=== PATIENT | female | born 1935 | race Caucasian/White ===

== ENCOUNTER 2022-01-21 11:03 | Emergency (ER) | payer MEDICARE, SELFPAY ==
--- NOTE | ~2022-01-21 | XR_ITS ---
EXAMINATION: XR CHEST CLINICAL INFORMATION: Generalized weakness COMPARISON: None TECHNIQUE: Frontal view of the chest was obtained. FINDINGS: Cardiac silhouette is normal in size. Atherosclerotic disease of the aortic arch. The lungs are well aerated. There is no lobar consolidation. Blunting of the right costophrenic angle is most consistent with a small pleural effusion. There is no pneumothorax. Degenerative changes of the spine. Old posttraumatic changes of the left humeral head. XR/XR chest 1V IMPRESSION: Small right-sided pleural effusion.
--- NOTE | 2022-01-21 11:39 | ED_ITS ---
HPI - General Adult General Chief complaint: Nausea/Vomiting/Diarrhea Stated complaint: LETHARGY, VOMITING Time Seen by Provider: 01/21/22 11:39 Source: patient and EMS Mode of arrival: EMS Limitations: other (Dementia) History of Present Illness HPI narrative: 86-year-old female came in by ambulance for evaluation of feeling generalized weakness with vomiting. Patient came in from [facility] locked dementia unit for evaluation of generalized weakness, patient found at the long term looking pale soaked in the vomitus no sick contact reported, patient declined any diarrhea, no fever, no chills. Patient stated ?I feel lousy ?. Reported by long term patient initially was hypotensive. History of appendectomy many years ago. Related Data Home Medications Medication Instructions Recorded Confirmed divalproex 125 mg tablet,delayed 125 mg PO BID 01/21/22 01/21/22 release (Depakote) levothyroxine 75 mcg tablet 1 tab PO DAILY 01/21/22 01/21/22 lidocaine 5 % topical patch 1 patch topical DAILY 01/21/22 01/21/22 losartan 50 mg tablet 50 mg PO DAILY 01/21/22 01/21/22 melatonin 5 mg tablet 5 mg PO BEDTIME 01/21/22 01/21/22 multivitamin 1 tab PO DAILY 01/21/22 01/21/22 omeprazole 20 mg capsule,delayed 20 mg PO DAILY 01/21/22 01/21/22 release ondansetron 4 mg disintegrating 4 mg PO Q8H PRN Nausea 01/21/22 01/21/22 tablet polyethylene glycol 3350 17 17 g PO DAILY 01/21/22 01/21/22 gram/dose oral powder (Miralax) quetiapine 25 mg tablet 12.5 mg PO BID PRN Psychosis 01/21/22 01/21/22 simvastatin 20 mg tablet 20 mg PO BEDTIME 01/21/22 01/21/22 tamsulosin 0.4 mg capsule 0.4 mg PO BEDTIME 01/21/22 01/21/22 Allergies Allergy/AdvReac Type Severity Reaction Status Date / Time codeine Allergy Unknown Unknown Verified 01/21/22 11:43 Review of Systems Review of Systems: Yes Unobtainable due to mental status (Due to dementia) PMFSH Social History Social History Patient Tobacco Use Status: Never used Tobacco Use of substances other than those prescribed or required for medical reasons: No Advance Directives: No Physical Exam ED Vital Signs: Vital Signs - 24 hr 01/21/22 12:01 01/21/22 12:13 Temperature 97.4 F 97.4 F Pulse Rate 55 52 Respiratory Rate 16 20 Blood Pressure 106/44 L 106/44 L Pulse Oximetry 97 98 Oxygen Delivery Method Room Air Room Air BMI result Body Mass Index 27.4 Vital signs have been reviewed as appeared to be correct. Blood pressure normal. Heart rate normal. Respiration rate normal. Temperature normal. Oxygen saturation normal. Appearance: Alert. No acute distress. Head: Normal external exam. Normocephalic. Atraumatic. No Blackwell signs noted. No raccoon eyes noted Eyes: PERRLA. EOMI. Conjunctiva and sclera normal. Eyelids normal. ENT: TM's Normal. Pharynx normal. Uvula midline. Moist mucous membranes. No trismus noted. No drooling noted. No muffled voice noted. Neck: Normal inspection. Neck supple. FROM. No adenopathy. Thyroid Normal. No meningeal signs. No neck mass noted. CVS: Normal heart rate and rhythm. Heart sound normal. No murmurs noted. Pulses normal throughout. Respiratory: No respiratory distress. Painless inspiration. Breath sounds normal. No wheezes/rales/rhonchi noted. Chest nontender. No accessory muscle usage noted or decreased air movement noted. Abdomen: Soft and nontender. Bowel sounds normal in all 4 quadrants. No distention noted. No organomegaly noted. No visible injury noted. Back: No CVA tenderness. Full range of motion noted. Skin: Skin warm and dry. Normal skin color. Normal skin turgor. No rashes/lesions/lacerations noted. Extremities: No lower extremity edema. Extremities exhibit normal range of motion. Extremities nontender. Neuro: . Cranial nerve exam: II-XII are grossly intact No motor deficit. No sensory deficit. Reflexes normal. Course Course Course Narrative: 86-year-old female from long term came in for evaluation of vomiting and generalized weakness, patient had low blood pressure reading at the long term but normal BP with EMS and while she is in the ED. Patient is in the ED received IV fluids, patient was given p.o. challenge able to keep it down, patient do not feel any pain, patient is asymptomatic and requesting go back to the long term will arrange for transportation. Medical Decision Making Lab Data Lab results reviewed: Yes I reviewed the patient's lab results. Result diagrams: 01/21/22 12:57 01/21/22 12:57 Labs: Lab Results 01/21/22 01/21/22 01/21/22 Range/Units 12:57 12:59 13:01 Sodium 141 (135-145) mmol/L Potassium 4.7 (3.3-5.1) mmol/L Chloride 102 (96-108) mmol/L Carbon Dioxide 27 (22-29) mmol/L Anion Gap 17 (12-20) BUN 36 H (9-16) mg/dL Creatinine 1.17 (0.5-1.4) mg/dL Estim Creat Clear Calc 32.3 Estimated GFR 44 Random Glucose 100 (60-115) mg/dL Lactic Acid (0.5-2.0) mmol/L Calcium 9.4 (8.4-10.2) mg/dL Total Bilirubin 0.4 (0.0-1.0) mg/dL Direct Bilirubin 0.2 (0.0-0.5) mg/dL AST 17 (5-31) U/L ALT 8 (0-31) U/L Alkaline Phosphatase 88 (39-117) U/L Troponin I High Sens 4.0 (<3.5-17.0) ng/L B-Natriuretic Peptide 16 (<100) pg/mL Total Protein 7.2 (6.5-8.0) g/dL Albumin 3.9 (3.5-5.0) g/dL Lipase 40 (8-78) U/L COVID-19 (DAMIR) (Negative) COVID-19 Clin Com 01/21/22 01/21/22 Range/Units 13:01 13:01 Sodium (135-145) mmol/L Potassium (3.3-5.1) mmol/L Chloride (96-108) mmol/L Carbon Dioxide (22-29) mmol/L Anion Gap (12-20) BUN (9-16) mg/dL Creatinine (0.5-1.4) mg/dL Estim Creat Clear Calc Estimated GFR Random Glucose (60-115) mg/dL Lactic Acid 1.1 (0.5-2.0) mmol/L Calcium (8.4-10.2) mg/dL Total Bilirubin (0.0-1.0) mg/dL Direct Bilirubin (0.0-0.5) mg/dL AST (5-31) U/L ALT (0-31) U/L Alkaline Phosphatase (39-117) U/L Troponin I High Sens (<3.5-17.0) ng/L B-Natriuretic Peptide (<100) pg/mL Total Protein (6.5-8.0) g/dL Albumin (3.5-5.0) g/dL Lipase (8-78) U/L COVID-19 (DAMIR) Negative (Negative) COVID-19 Clin Com See Note CBC hemolyzed, patient feels better able to tolerate p.o. intake no need to repeat CBC. Discharge Plan Discharge Clinical Impression: Dehydration, Vomiting Patient Disposition: Home, Self-Care Instructions: Dehydration (ED) Prescriptions: No Action multivitamin Tablet 1 tab PO DAILY losartan 50 mg Tablet 50 mg PO DAILY quetiapine 25 mg Tablet 12.5 mg PO BID PRN (Reason: Psychosis) levothyroxine 75 mcg tablet 1 tab PO DAILY tamsulosin 0.4 mg Capsule 0.4 mg PO BEDTIME simvastatin 20 mg Tablet 20 mg PO BEDTIME lidocaine 5 % Adhesive Patch,Medicated 1 patch TOPICAL DAILY Rx Instructions: leave on most painful area for up to 12 hrs divalproex [Depakote] 125 mg Tablet,Delayed Release (Dr/Ec) 125 mg PO BID omeprazole 20 mg Capsule,Delayed Release(Dr/Ec) 20 mg PO DAILY polyethylene glycol 3350 [Miralax] 17 gram/dose Powder 17 g PO DAILY ondansetron 4 mg Tablet,Disintegrating 4 mg PO Q8H PRN (Reason: Nausea) melatonin 5 mg Tablet 5 mg PO BEDTIME
--- NOTE | 2022-01-21 11:45 | ECG_ITS ---
Test Reason : N+V Blood Pressure : / mmHG Vent. Rate : 054 BPM Atrial Rate : 054 BPM P-R Int : 142 ms QRS Dur : 092 ms QT Int : 458 ms P-R-T Axes : 023 -62 070 degrees QTc Int : 434 ms Sinus bradycardia Left axis deviation Abnormal ECG No previous ECGs available Referred By: Pj Melendez Electronically Signed By:JADYN JACKSON
[2022-01-21 11:56] VITALS: BP 90/60; PULSE 55; O2SAT 99
[2022-01-21 12:01] VITALS: BP 106/44; PULSE 55; RESP 16; TEMP 36.3; O2SAT 97; BMI 27.4
[2022-01-21 12:13] VITALS: BP 106/44; PULSE 52; RESP 20; TEMP 36.3; O2SAT 98
[2022-01-21] MEDS: 0.9 % Sodium Chloride 1,000 ML 999 ML IV (13:05)
--- NOTE | 2022-01-21 13:13 | PHA.MEDREC ---
Pharmacy Consult ? Medication Reconciliation Pharmacy has completed the medication reconciliation.
[2022-01-21 13:28] LABS: Lactic Acid 1.1 mmol/L (0.5-2.0)
[2022-01-21 13:34] LABS: Alanine Aminotransferase 8 U/L (0-31); Albumin Level 3.9 g/dL (3.5-5.0); Alkaline Phosphatase 88 U/L (39-117); Anion Gap 17 (12-20); Aspartate Amino Transferase 17 U/L (5-31); Bilirubin Direct 0.2 mg/dL (0.0-0.5); Bilirubin Total 0.4 mg/dL (0.0-1.0); Blood Urea Nitrogen 36 mg/dL (9-16); Calcium 9.4 mg/dL (8.4-10.2); Carbon Dioxide 27 mmol/L (22-29); Chloride 102 mmol/L (96-108); Creatinine Clr Calc Pharmacy 32.3; Estimated Glomerular Filt Rate 44; Glucose Random 100 mg/dL (60-115); Lipase 40 U/L (8-78); Potassium 4.7 mmol/L (3.3-5.1); Sodium 141 mmol/L (135-145); Total Protein 7.2 g/dL (6.5-8.0)
[2022-01-21 13:37] LABS: B Type Natriuretic Peptide 16 pg/mL (<100)
[2022-01-21 13:38] LABS: COVID-19 Test Negative (Negative)
--- NOTE | 2022-01-21 17:18 | PC.NURSE ---
RN-RN report given to [facility].
== END 2022-01-21 17:19 | disposition home or self-care (01) ==
PROVIDERS: Emergency Provider Emergency Medicine; PCP Emergency Medicine
DX: R11.2 Nausea with vomiting, unspecified (principal); R06.02 Shortness of breath; Z20.822 Contact with and (suspected) exposure to COVID-19; Z79.899 Other long term (current) drug therapy
CPT/HCPCS: 36415; 71045; 80048; 80076; 83605; 83690; 83880; 84484; 87040; 87635; 93005; 96360; 96361; 99284; 99285

== ENCOUNTER 2022-05-15 14:17 | Inpatient (IN) | payer MEDICARE, SELFPAY ==
--- NOTE | ~2022-05-15 | XR_ITS ---
EXAMINATION: PORTABLE CHEST 1 VIEW CLINICAL INFORMATION: chest pain . COMPARISON: 01/21/2022. TECHNIQUE: Portable frontal view of the chest was obtained. FINDINGS: The lungs are well expanded. Chronic appearing reticular markings again noted bilaterally. No focal infiltrate, effusion, edema, or pneumothorax. Previous tiny right effusion seen on the prior study has essentially resolved. Cardiac and mediastinal silhouettes are within normal limits for technique. No acute bony abnormality seen. XR/XR chest 1V IMPRESSION: Chronic appearing changes similar to the 01/21/2022 study.
[2022-05-15 14:31] VITALS: BP 157/74; PULSE 88; O2SAT 96; BMI 21.3
[2022-05-15 14:37] VITALS: BP 109/67; PULSE 66; RESP 15; TEMP 37.3; O2SAT 94
--- NOTE | 2022-05-15 15:02 | ECG_ITS ---
Test Reason : CP Blood Pressure : / mmHG Vent. Rate : 077 BPM Atrial Rate : 077 BPM P-R Int : 172 ms QRS Dur : 098 ms QT Int : 384 ms P-R-T Axes : 053 -70 064 degrees QTc Int : 434 ms Artifact in tracing Normal sinus rhythm Left axis deviation Incomplete right bundle branch block Abnormal ECG When compared with ECG of 21-JAN-2022 12:12, No significant changes seen Referred By: Generic ED Physician Electronically Signed By:LARISSA JONES
[2022-05-15 15:39] VITALS: PULSE 71
--- NOTE | 2022-05-15 15:41 | PC.NURSE ---
PT CURRENTLY DENIES ANY PAIN, NAUSEA, SOB. POOR HISTORIAN, HX DEMENTIA. NSR ON MONITOR. SPEAKING IN CLEAR FULL SENTENCES, RESP EVEN, NONLABOURED, SKIN WPD.
[2022-05-15 15:42] LABS: MANUAL DIFF FLAG NO
[2022-05-15 15:45] LABS: Basophils Absolute Auto 0.1 X10*3/uL (0.0-0.2); Basophils Percent Auto 0.9 % (0-2); Eosinophils Absolute Auto 0.5 X10*3/uL (0.0-0.4); Eosinophils Percent Auto 4.7 % (0-4); Hematocrit 36.7 % (37.0-47.0); Imm Gran Abs Auto 0.09 X10*3/uL (0.00-0.03); Imm Gran Pct Auto 0.8 % (0.0-0.4); Lymphocytes Absolute Auto 1.6 X10*3/uL (1.2-4.9); Lymphocytes Percent Auto 15.3 % (20-40); Mean Corpuscular HGB Conc 32.7 g/dl (31.0-35.0); Mean Corpuscular Hemoglobin 30.5 pg (27.0-33.0); Mean Corpuscular Volume 93.1 fL (80.0-98.0); Mean Platelet Volume 10.6 fL (9.4-12.3); Monocytes Percent Auto 9.4 % (2-11); Neutrophils Absolute Auto 7.4 x10*3/uL (2.0-8.3); Neutrophils Percent Auto 68.9 % (45-73); Platelet Count 209 X10*3/uL (160-400); Red Blood Count 3.94 X10*6/uL (4.20-5.50); Red Cell Distribution Width 14.2 % (11.0-16.0); White Blood Count 10.8 X10*3/uL (4.8-10.8)
[2022-05-15 15:49] LABS: INTERNATIONAL NORM RATIO 1.1 (0.9-1.1); Prothrombin Time 12.5 SEC (10.0-13.1)
[2022-05-15 16:01] LABS: Alanine Aminotransferase 25 U/L (0-31); Albumin Level 3.8 g/dL (3.5-5.0); Alkaline Phosphatase 103 U/L (39-117); Anion Gap 14 (12-20); Aspartate Amino Transferase 35 U/L (5-31); Bilirubin Total 0.2 mg/dL (0.0-1.0); Blood Urea Nitrogen 33 mg/dL (9-16); Carbon Dioxide 23 mmol/L (22-29); Chloride 105 mmol/L (96-108); Creatinine Clr Calc Pharmacy 40.8; Estimated Glomerular Filt Rate 55; Glucose Random 103 mg/dL (60-115); Potassium 4.4 mmol/L (3.3-5.1); Sodium 138 mmol/L (135-145); Total Protein 7.5 g/dL (6.5-8.0)
[2022-05-15 16:10] LABS: Troponin-I High Sensitivity 54.1 ng/L (<3.5-17.0)
[2022-05-15 17:03] VITALS: BP 132/55; PULSE 77; RESP 20; O2SAT 95
--- NOTE | 2022-05-15 18:28 | ED.CHESTPAIN ---
HPI - Chest Pain General Chief Complaint: Chest Pain Stated Complaint: CP RESOLVED Time Seen by Provider: 05/15/22 16:18 Source: patient, EMS and other History of Present Illness HPI narrative: 86-year-old female was brought in by EMS from the long-term care facility, [facility], for patient complaints of approximately 10 minutes of chest pain that she described as 10/10. On my initial evaluation with the patient she denies any current shortness of breath, chest pain, nausea, dizziness or headache. Patient herself is a poor historian. Related Data Home Medications Medication Instructions Recorded Confirmed divalproex 125 mg tablet,delayed 125 mg PO BID 01/21/22 01/21/22 release (Depakote) levothyroxine 75 mcg tablet 1 tab PO DAILY 01/21/22 01/21/22 lidocaine 5 % topical patch 1 patch topical DAILY 01/21/22 01/21/22 losartan 50 mg tablet 50 mg PO DAILY 01/21/22 01/21/22 melatonin 5 mg tablet 5 mg PO BEDTIME 01/21/22 01/21/22 multivitamin 1 tab PO DAILY 01/21/22 01/21/22 omeprazole 20 mg capsule,delayed 20 mg PO DAILY 01/21/22 01/21/22 release ondansetron 4 mg disintegrating 4 mg PO Q8H PRN Nausea 01/21/22 01/21/22 tablet polyethylene glycol 3350 17 17 g PO DAILY 01/21/22 01/21/22 gram/dose oral powder (Miralax) quetiapine 25 mg tablet 12.5 mg PO BID PRN Psychosis 01/21/22 01/21/22 simvastatin 20 mg tablet 20 mg PO BEDTIME 01/21/22 01/21/22 tamsulosin 0.4 mg capsule 0.4 mg PO BEDTIME 01/21/22 01/21/22 Allergies Allergy/AdvReac Type Severity Reaction Status Date / Time codeine Allergy Unknown Unknown Verified 01/21/22 11:43 Review of Systems Review of Systems: Pertinent positives and negatives as stated in HPI PMFSH Past Medical History Source: nursing notes reviewed Social History Social History Patient Tobacco Use Status: Never used Tobacco Use of substances other than those prescribed or required for medical reasons: No Advance Directives: Yes Advance Directives on File: Yes Advance Directives Date on File: 05/15/22 Physical Exam Vital Signs: Vital Signs: Last Vital Signs Temp 99.1 F 05/15/22 14:37 Pulse 88 05/15/22 19:29 Resp 18 05/15/22 19:29 BP 159/77 H 05/15/22 19:29 Pulse Ox 94 05/15/22 19:29 O2 Del Method 05/15/22 19:29 BMI result Body Mass Index 21.3 VITAL SIGNS: Reviewed. GENERAL: Well developed, well nourished, in no acute distress. HEAD: Normocephalic/atraumatic EYES: PERRLA, EOMI EARS: Ext canals without abnormality OROPHARYNX: no oral lesions noted, posterior pharynx clear LUNGS: Normal breath sounds. No adventitious sounds or accessory muscle use. SpO2<95> CARDIOVASCULAR: Regular rate and rhythm without noted murmurs, no JVD or lower extremity edema. ABDOMEN: Soft, non-tender, non-distended with bowel sounds. MUSCULOSKELETAL: No tenderness, deformities, or effusions noted on gross inspection. EXTREMITIES: No cyanosis, clubbing or edema. SKIN: Inspection of the skin reveals no rashes NEUROLOGIC: Alert and oriented x 2. Strength and sensation to light touch were grossly intact x 4. Course Course Course Narrative: 86-year-old female who is a poor historian, and denies any current complaints to better characterize sequence of events. On review of initial EKG there were changes noted in V4 and V5 that appear to be mild ST elevation at 1508. Initial troponin was noted to be 54 and serial troponin was 68, case discussed with cardiology. Otherwise, I discussed this case with inpatient hospitalist who accepts admission. Reevaluation(s) Reevaluation #1: I discussed with cardiology who states that there is no ST-elevation and on repeat EKG as a comparison states that there is slight elevation and recommends IV heparin if family wishes to proceed. Nursing staff did discuss with the daughter, Christina who is the healthcare proxy, she requests that ?everything be done?. Time: 18:57 Medical Decision Making Lab Data Result Diagrams: 05/15/22 20:05 05/15/22 15:34 Labs: Lab Results 05/15/22 05/15/22 05/15/22 Range/Units 15:34 15:34 15:34 WBC 10.8 (4.8-10.8) X10*3/uL RBC 3.94 L (4.20-5.50) X10*6/uL Hgb 12.0 (12.0-16.0) g/dl Hct 36.7 L (37.0-47.0) % MCV 93.1 (80.0-98.0) fL MCH 30.5 (27.0-33.0) pg MCHC 32.7 (31.0-35.0) g/dl RDW 14.2 (11.0-16.0) % Plt Count 209 (160-400) X10*3/uL MPV 10.6 (9.4-12.3) fL Immature Gran % (Auto) 0.8 H (0.0-0.4) % Neut % (Auto) 68.9 (45-73) % Lymph % (Auto) 15.3 L (20-40) % [place] % (Auto) 9.4 (2-11) % Eos % (Auto) 4.7 H (0-4) % Baso % (Auto) 0.9 (0-2) % Lymph # (Auto) 1.6 (1.2-4.9) X10*3/uL [place] # (Auto) 1.0 (0.1-1.2) X10*3/uL Eos # (Auto) 0.5 H (0.0-0.4) X10*3/uL Baso # (Auto) 0.1 (0.0-0.2) X10*3/uL Abs Immat Gran (auto) 0.09 H (0.00-0.03) X10*3/uL Absolute Neuts (auto) 7.4 (2.0-8.3) x10*3/uL Absolute Nucleated RBC 0.000 (0.0-0.012) X10*3/uL Nucleated RBC % (auto) 0.0 (0.0-0.2) /100WBC PT 12.5 (10.0-13.1) SEC INR 1.1 (0.9-1.1) APTT 30.7 (26.0-36.4) SEC Sodium 138 (135-145) mmol/L Potassium 4.4 (3.3-5.1) mmol/L Chloride 105 (96-108) mmol/L Carbon Dioxide 23 (22-29) mmol/L Anion Gap 14 (12-20) BUN 33 H (9-16) mg/dL Creatinine 0.96 (0.5-1.4) mg/dL Estim Creat Clear Calc 40.8 Estimated GFR 55 Random Glucose 103 (60-115) mg/dL Calcium 9.0 (8.4-10.2) mg/dL Total Bilirubin 0.2 (0.0-1.0) mg/dL AST 35 H (5-31) U/L ALT 25 (0-31) U/L Alkaline Phosphatase 103 (39-117) U/L Troponin I High Sens (<3.5-17.0) ng/L Total Protein 7.5 (6.5-8.0) g/dL Albumin 3.8 (3.5-5.0) g/dL 05/15/22 05/15/22 05/15/22 Range/Units 15:34 17:07 20:05 WBC 13.0 H (4.8-10.8) X10*3/uL RBC 4.25 (4.20-5.50) X10*6/uL Hgb 12.7 (12.0-16.0) g/dl Hct 38.5 (37.0-47.0) % MCV 90.6 (80.0-98.0) fL MCH 29.9 (27.0-33.0) pg MCHC 33.0 (31.0-35.0) g/dl RDW 14.3 (11.0-16.0) % Plt Count 234 (160-400) X10*3/uL MPV 10.4 (9.4-12.3) fL Immature Gran % (Auto) (0.0-0.4) % Neut % (Auto) (45-73) % Lymph % (Auto) (20-40) % [place] % (Auto) (2-11) % Eos % (Auto) (0-4) % Baso % (Auto) (0-2) % Lymph # (Auto) (1.2-4.9) X10*3/uL [place] # (Auto) (0.1-1.2) X10*3/uL Eos # (Auto) (0.0-0.4) X10*3/uL Baso # (Auto) (0.0-0.2) X10*3/uL Abs Immat Gran (auto) (0.00-0.03) X10*3/uL Absolute Neuts (auto) (2.0-8.3) x10*3/uL Absolute Nucleated RBC 0.000 (0.0-0.012) X10*3/uL Nucleated RBC % (auto) 0.0 (0.0-0.2) /100WBC PT (10.0-13.1) SEC INR (0.9-1.1) APTT (26.0-36.4) SEC Sodium (135-145) mmol/L Potassium (3.3-5.1) mmol/L Chloride (96-108) mmol/L Carbon Dioxide (22-29) mmol/L Anion Gap (12-20) BUN (9-16) mg/dL Creatinine (0.5-1.4) mg/dL Estim Creat Clear Calc Estimated GFR Random Glucose (60-115) mg/dL Calcium (8.4-10.2) mg/dL Total Bilirubin (0.0-1.0) mg/dL AST (5-31) U/L ALT (0-31) U/L Alkaline Phosphatase (39-117) U/L Troponin I High Sens 54.1 H* 68.0 H* D (<3.5-17.0) ng/L Total Protein (6.5-8.0) g/dL Albumin (3.5-5.0) g/dL Independent Interpretation I performed an independent interpretation of an: EKG Interpretation: 1508: EKG which demonstrates ST elevation in V4/V5, IA/QRS/QTC are within normal limits(cardiology evaluated and states slight elevation ) 1859: Sinus rhythm with first-degree AV block, HR-93, IA-230, no STEMI, QRS/QTC are within normal limits. Critical Care Time Critical Care Time Critical Care Time: Yes Total Critical Care Time: 60 Attestation: I personally attest to this time spent taking care of the patient. Discharge Plan Discharge Clinical Impression: Chest pain, Angina at rest, Acute electrocardiogram changes, Elevated troponin Patient Disposition: Admitted As Inpatient Prescriptions: No Action multivitamin Tablet 1 tab PO DAILY losartan 50 mg Tablet 50 mg PO DAILY quetiapine 25 mg Tablet 12.5 mg PO BID PRN (Reason: Psychosis) levothyroxine 75 mcg tablet 1 tab PO DAILY tamsulosin 0.4 mg Capsule 0.4 mg PO BEDTIME simvastatin 20 mg Tablet 20 mg PO BEDTIME lidocaine 5 % Adhesive Patch,Medicated 1 patch TOPICAL DAILY Rx Instructions: leave on most painful area for up to 12 hrs divalproex [Depakote] 125 mg Tablet,Delayed Release (Dr/Ec) 125 mg PO BID omeprazole 20 mg Capsule,Delayed Release(Dr/Ec) 20 mg PO DAILY polyethylene glycol 3350 [Miralax] 17 gram/dose Powder 17 g PO DAILY ondansetron 4 mg Tablet,Disintegrating 4 mg PO Q8H PRN (Reason: Nausea) melatonin 5 mg Tablet 5 mg PO BEDTIME
--- NOTE | 2022-05-15 18:59 | ECG_ITS ---
Test Reason : CHEST PAIN Blood Pressure : / mmHG Vent. Rate : 093 BPM Atrial Rate : 093 BPM P-R Int : 230 ms QRS Dur : 086 ms QT Int : 362 ms P-R-T Axes : 072 -70 073 degrees QTc Int : 450 ms Sinus rhythm with 1st degree A-V block Left axis deviation Abnormal ECG When compared with ECG of 15-MAY-2022 15:08, MO interval has increased Incomplete right bundle branch block is no longer Present Referred By: Ubaldo Galarza Electronically Signed By:Blayne Aguillon
[2022-05-15 19:07] VITALS: BP 159/77; PULSE 83; RESP 15; O2SAT 93
[2022-05-15 19:29] VITALS: BP 159/77; PULSE 88; RESP 18; O2SAT 94
--- NOTE | 2022-05-15 19:35 | PC.NURSE ---
This RN spoke to Christina, dtr HCP re: plan for treatment, explained to Christina there are some changes in EKG and elevated troponin x2, patient denies chest pain, VSS. Patient DNR/DNI. Per Christina, treat patient per protocol.
[2022-05-15 19:47] LABS: Partial Thromboplastin Time 30.7 SEC (26.0-36.4)
[2022-05-15 20:12] LABS: Hematocrit 38.5 % (37.0-47.0); Hemoglobin 12.7 g/dl (12.0-16.0); Mean Corpuscular Hemoglobin 29.9 pg (27.0-33.0); Mean Corpuscular Volume 90.6 fL (80.0-98.0); Mean Platelet Volume 10.4 fL (9.4-12.3); Platelet Count 234 X10*3/uL (160-400); Red Blood Count 4.25 X10*6/uL (4.20-5.50); Red Cell Distribution Width 14.3 % (11.0-16.0)
[2022-05-15 20:19] LABS: Prothrombin Time 11.5 SEC (10.0-13.1)
[2022-05-15 20:22] LABS: PTT Heparin Drip 30.6 SEC (53-77.9)
--- NOTE | 2022-05-15 20:32 | P.HPHOSP_ITS ---
History of Present Illness Date of Service: 05/15/22 Chief Complaint: chest pain 86-year-old female with past medical history of dementia , hypothyroidism, seizure disorder, hypertension, sent into the hospital after patient complained of chest pain. Patient is very confused, agitated, crying, very paranoid, rosie ble to get much history from her. On arrival to the ED patient hemodynamically stable Labs are significant for WBC count of 13.0, troponin 54 increased to 68, EKG showed no significant ST T-wave changes suggestive of ACS, this case was discussed with Cardiology by ED physician, and patient was started on heparin drip unable to obtain past medical surgical family, or social history from patient, mostly obtained from EMR Review of Systems Review of Systems: Yes Unobtainable due to mental condition and Unobtainable due to mental status [facility] Medical History (Updated 05/16/22 @ 06:39 by Charles Aleman MD) Dementia Hypertension Hypothyroidism Social History Household Members: Other Household Members Other:: [facility] Housing: Correction Unable to assess alcohol history related to: Refusing to respond Patient Tobacco Use Status: Never used Tobacco Use of substances other than those prescribed or required for medical reasons: Refusing to respond Currently Displaying Signs/Symptoms of Drug Intoxication Withdrawal: No Advance Directives: Yes Advance Directives on File: Yes Advance Directives Date on File: 05/15/22 Do you have thoughts of harming others: None Do you have a plan to hurt others: No Plan Recently lost weight without trying: Unsure Nutrition Risks: No Nutritional Risk Patient : No : No Poor oral hygiene: No service: No Current occupational status: retired [employer] Allergies Allergy/AdvReac Type Severity Reaction Status Date / Time codeine Allergy Unknown Unknown Verified 01/21/22 11:43 Active Medications: Current Medications Acetaminophen (Acetaminophen 325 Mg Tablet) 650 mg PO Q6H PRN PRN Reason: Pain, Mild (Pain Scale 1-3) Docusate Sodium (Docusate Sodium 100 Mg Capsule) 100 mg PO DAILY PRN PRN Reason: Constipation Heparin Sodium (Porcine) (Heparin Sodium,Porcine 5,000 Unit/Ml Vial) 2,400 unit 40 unit/kg (2400 unit) IVPUSH PROTOCOL BOLUS PRN; Protocol PRN Reason: 40 unit/kg - Heparin Protocol Heparin Sodium (Porcine) (Heparin Sodium,Porcine 5,000 Unit/Ml Vial) 4,800 unit 80 unit/kg (4800 unit) IVPUSH PROTOCOL BOLUS PRN; Protocol PRN Reason: 80 unit/kg - Heparin Protocol Heparin Sodium/Sodium Chloride (Heparin Sodium,Porcine/1/2ns) 25,000 unit in 250 mls @ 0 mls/hr IVCONT .Q0M MELINA; Protocol Ondansetron HCl (Ondansetron Hcl 4 Mg/2 Ml Vial) 4 mg IVPUSH Q8H PRN PRN Reason: Nausea and Vomiting Pharmacy Consult (Consult Rx Perform Med Rec) 1 each MISCELLANE ONCE PRN PRN Reason: Consult order Sodium Chloride (0.9 % Sodium Chloride Flush 3 Ml Syringe) 3 ml IVFLUSH QSHIFT [facility] Home Medications Medication Instructions Recorded Confirmed Last Taken Type divalproex 125 mg tablet,delayed 125 mg PO BID 01/21/22 05/15/22 Unknown History release (Depakote) levothyroxine 75 mcg tablet 1 tab PO DAILY 01/21/22 05/15/22 Unknown History lidocaine 5 % topical patch 1 patch topical DAILY 01/21/22 05/15/22 Unknown History melatonin 5 mg tablet 5 mg PO BEDTIME 01/21/22 05/15/22 Unknown History multivitamin 1 tab PO DAILY 01/21/22 05/15/22 Unknown History omeprazole 20 mg capsule,delayed 20 mg PO DAILY 01/21/22 05/15/22 Unknown History release polyethylene glycol 3350 17 17 g PO DAILY 01/21/22 05/15/22 Unknown History gram/dose oral powder (Miralax) quetiapine 25 mg tablet 12.5 mg PO DAILY@1400 01/21/22 05/15/22 Unknown History simvastatin 20 mg tablet 20 mg PO BEDTIME 01/21/22 05/15/22 Unknown History tamsulosin 0.4 mg capsule 0.4 mg PO BEDTIME 01/21/22 05/15/22 Unknown History acetaminophen 325 mg tablet 650 mg PO BID 05/15/22 05/15/22 Unknown History acetaminophen 325 mg tablet 650 mg PO Q6H PRN ELEVATED 05/15/22 05/15/22 Unknown History TEMP/PAIN escitalopram oxalate 5 mg tablet 7.5 mg PO DAILY 05/15/22 05/15/22 Unknown History losartan 25 mg tablet 25 mg PO DAILY 05/15/22 05/15/22 Unknown History Physical Exam Vital Signs and Narrative: Vital Signs: Last Vital Signs Temp 99.1 F 05/15/22 14:37 Pulse 88 05/15/22 19:29 Resp 18 05/15/22 19:29 BP 159/77 H 05/15/22 19:29 Pulse Ox 94 05/15/22 19:29 O2 Del Method 05/15/22 19:29 BMI result Body Mass Index 21.3 Const: Other: patient is very confused, crying, accusing nurses and myself of trying to hurt her General: cooperative and no acute distress Eyes: General: appearance normal, both eyes and all related structures Resp: Effort & Inspection: normal respiratory effort Auscultation: clear to auscultation bilaterally Cardio: Rate: regular rate Rhythm: regular rhythm GI: Palpation (GI): Soft to palpation Auscultation: normal bowel sounds Skin: General skin exam: no rashes or lesions noted Extrem: General: Yes normal to inspection and Yes no pedal edema Results Labs CBC and Chem 7: 05/16/22 04:49 05/16/22 04:49 Labs: Laboratory Results - last 24 hr 05/15/22 05/15/22 05/15/22 15:34 15:34 15:34 MCV 93.1 MCH 30.5 MCHC 32.7 RDW 14.2 Plt Count 209 MPV 10.6 Immature Gran % (Auto) 0.8 H Neut % (Auto) 68.9 Lymph % (Auto) 15.3 L [place] % (Auto) 9.4 Eos % (Auto) 4.7 H Baso % (Auto) 0.9 Lymph # (Auto) 1.6 [place] # (Auto) 1.0 Eos # (Auto) 0.5 H Baso # (Auto) 0.1 Abs Immat Gran (auto) 0.09 H Absolute Neuts (auto) 7.4 Absolute Nucleated RBC 0.000 Nucleated RBC % (auto) 0.0 PT 12.5 INR 1.1 APTT 30.7 aPTT Heparin Protocol Anion Gap 14 Estim Creat Clear Calc 40.8 Estimated GFR 55 Random Glucose 103 Calcium 9.0 Total Bilirubin 0.2 AST 35 H ALT 25 Alkaline Phosphatase 103 Troponin I High Sens Total Protein 7.5 Albumin 3.8 05/15/22 05/15/22 05/15/22 15:34 17:07 20:05 MCV 90.6 MCH 29.9 MCHC 33.0 RDW 14.3 Plt Count 234 MPV 10.4 Immature Gran % (Auto) Neut % (Auto) Lymph % (Auto) [place] % (Auto) Eos % (Auto) Baso % (Auto) Lymph # (Auto) [place] # (Auto) Eos # (Auto) Baso # (Auto) Abs Immat Gran (auto) Absolute Neuts (auto) Absolute Nucleated RBC 0.000 Nucleated RBC % (auto) 0.0 PT INR APTT aPTT Heparin Protocol Anion Gap Estim Creat Clear Calc Estimated GFR Random Glucose Calcium Total Bilirubin AST ALT Alkaline Phosphatase Troponin I High Sens 54.1 H* 68.0 H* D Total Protein Albumin 05/15/22 20:05 MCV MCH MCHC RDW Plt Count MPV Immature Gran % (Auto) Neut % (Auto) Lymph % (Auto) [place] % (Auto) Eos % (Auto) Baso % (Auto) Lymph # (Auto) [place] # (Auto) Eos # (Auto) Baso # (Auto) Abs Immat Gran (auto) Absolute Neuts (auto) Absolute Nucleated RBC Nucleated RBC % (auto) PT 11.5 INR 1.0 APTT aPTT Heparin Protocol 30.6 L Anion Gap Estim Creat Clear Calc Estimated GFR Random Glucose Calcium Total Bilirubin AST ALT Alkaline Phosphatase Troponin I High Sens Total Protein Albumin Imaging Radiologist's Impressions: Impressions Chest X-Ray 05/15/22 19:25 IMPRESSION: Chronic appearing changes similar to the 01/21/2022 study. Assessment and Plan (1) Chest pain: Status: Acute (2) Elevated troponin: Status: Acute Plan 86-year-old female with past medical history of dementia, hypertension, hypothyroidism, presents to the hospital after complaining of chest pain # chest pain - possibly secondary to ACS - able to get any history from patient herself - some troponin elevation - no significant EKGs in just suggestive of ACS - cardiology consulted by ED - patient on heparin - follow heparin protocol # hypertension - stable - will resume antihypertensives # hypothyroidism - continue levothyroxine # dementia - continue Seroquel DVT prophylaxis: Heparin code status: DNR DNI per [facility] Time Spent With Patient Time: Total time managing care of this patient today ____ minutes. Quality Stroke Does the patient have a stroke diagnosis?: No VTE Prior VTE?: No VTE Risk Level:: Medical - moderate - high VTE Device Contraindication: Treatment Not Indicated VTE Drug Contraindication: N/A - Med Ordered
[2022-05-15 20:33] LABS: COVID-19 Test Negative (Negative)
[2022-05-15] MEDS: diphenhydrAMINE HCL 50 MG/ML VIAL 25 MG IVPUSH (20:48)
--- NOTE | 2022-05-15 20:54 | PHA.MEDREC ---
MED REC COMPLETE, NO ISSUES Pharmacy Consult ? Medication Reconciliation Pharmacy has completed the medication reconciliation.
[2022-05-15] MEDS: Heparin Sodium,Porcine 5,000 UNIT/ML VIAL 3600 UNIT IVPUSH (20:55)
[2022-05-15] MEDS: Heparin Sodium,Porcine/1/2NS 25,000 UNIT/250 ML IV.SOLN 7.2 UNIT IVCONT (21:07)
--- NOTE | 2022-05-15 21:11 | MHC.CM.PN ---
Addendum entered by Columba Booker 05/15/22 21:39: Received return telephone call from Christina Fernandez ([phone]), patient's niece and HCP. Per Chrisitna, pt dementia is very advanced. She is total care at [facility]. Incontinent. Bedridden. They use a Hai lift to care for her. Christina believes patient is fully vaccinated and received current booster. Reviewed IMM with HCP. Requested copy at bedside. States is available by telephone, but will be away of Wednesday. Will be in to visit patient on Wednesday. Original Note: CM attempted to meet with patient. Patient has advanced dementia and is orientated to self only. Does not understand why she is at the hospital and wants the police to be called to return her home. Cannot participate in CM interview. Pt resides at [facility]. Per [facility] medical record, pt HCP is Christina Fernandez ([phone]). Message left with HCP to return call. Unable to review IMM or Covid vaccination status at this time. Unknown DME use. Pt being admitted NSTEMI. Pt to return to [facility] at discharge. Return referral placed in Care Port to [facility]. [facility] on file-DNR/DNI, transfer to hospital.
--- NOTE | 2022-05-15 21:19 | PC.NURSE ---
Pt is alert to self. Pt pulled out IV twice. IV site re inserted 22 G R forearm. Pt is resting quietly in bed.
--- NOTE | 2022-05-15 21:56 | PC.NURSE ---
attempted to give nurse to nurse report [place] [facility] staff report nurse will return call.
[2022-05-16 03:19] VITALS: BP 134/72; PULSE 68; RESP 16; TEMP 36.8; O2SAT 95
[2022-05-16 03:45] LABS: PTT Heparin Drip 145.7 SEC (53-77.9)
[2022-05-16 04:58] LABS: Hematocrit 34.8 % (37.0-47.0); Hemoglobin 11.6 g/dl (12.0-16.0); Mean Corpuscular HGB Conc 33.3 g/dl (31.0-35.0); Mean Corpuscular Hemoglobin 30.4 pg (27.0-33.0); Mean Corpuscular Volume 91.3 fL (80.0-98.0); Mean Platelet Volume 10.2 fL (9.4-12.3); Platelet Count 208 X10*3/uL (160-400); Red Blood Count 3.81 X10*6/uL (4.20-5.50); Red Cell Distribution Width 14.3 % (11.0-16.0); White Blood Count 12.3 X10*3/uL (4.8-10.8)
[2022-05-16 05:05] LABS: INTERNATIONAL NORM RATIO 1.1 (0.9-1.1); Prothrombin Time 12.3 SEC (10.0-13.1)
[2022-05-16 05:08] LABS: PTT Heparin Drip 78.7 SEC (53-77.9)
[2022-05-16 05:30] LABS: Anion Gap 14 (12-20); Blood Urea Nitrogen 30 mg/dL (9-16); Calcium 8.9 mg/dL (8.4-10.2); Carbon Dioxide 21 mmol/L (22-29); Chloride 110 mmol/L (96-108); Creatinine Clr Calc Pharmacy 42.6; Estimated Glomerular Filt Rate 58; Glucose Random 90 mg/dL (60-115); Sodium 141 mmol/L (135-145)
[2022-05-16 05:51] VITALS: BMI 22.4
[2022-05-16 08:00] VITALS: BP 151/85; PULSE 67; RESP 12; TEMP 36.7; O2SAT 90
[2022-05-16] MEDS: 0.9 % Sodium Chloride Flush 3 ML SYRINGE IVFLUSH ×3 (08:01→22:13)
[2022-05-16 09:16] LABS: Troponin-I High Sensitivity 43.6 ng/L (<3.5-17.0)
[2022-05-16] MEDS: Acetaminophen 325 MG TABLET 650 MG PO ×2 (10:37→22:13)
[2022-05-16] MEDS: Escitalopram Oxalate 5 MG TABLET 7.5 MG PO (10:37)
[2022-05-16] MEDS: Levothyroxine Sodium 75 MCG TABLET PO (10:37)
[2022-05-16] MEDS: Losartan Potassium 25 MG TABLET PO (10:37)
--- NOTE | 2022-05-16 11:00 | P.CONCA_ITS ---
History of Present Illness History of Present Illness Date of Service: 05/16/22 Chief complaint: NSTEMI Narrative: This is a cardiology consultation regarding chest pain. Patient has history of dementia, seizures and multi comorbidities. She was apparently complaining of chest pain and that led to ER visit. After coming here, she had not really had any clear chest pain symptoms but troponins were borderline high and she had nonspecific changes in the EKG. Subsequently admitted. At this time, she is denying any clear-cut cardiac symptoms. Answering some questions but otherwise seems confused. Review of Systems Review of Systems: Yes all other systems are reviewed and are negative Constitutional: Constitutional: Reports as per HPI Eyes: Eyes: Reports as per HPI ENT: Reports as per HPI Cardiovascular: Cardiovascular: Reports as per HPI, Denies acrocyanosis, Denies cool extremities, Denies chest pain, Denies leg edema, Denies lightheadedness, Denies palpitations and Denies dyspnea Respiratory: Respiratory: Reports as per HPI, Reports no additional respiratory complaints and Denies dyspnea Gastrointestinal: Gastrointestinal: Reports as per HPI and Reports no additional gastrointestinal complaints Genitourinary: Genitourinary: Reports as per HPI Musculoskeletal: Musculoskeletal: Reports no additional musculoskeletal complaints and Reports as per HPI Integumentary/Breasts: Skin/Breast: Reports system reviewed and no additional complaints, except as docu Neurologic: Reports system reviewed and no additional complaints, except as documented and Reports as per HPI Psychiatric: Psychiatric: Reports no additional psychiatric complaints and R eports as per HPI Endocrine: Endocrine: Reports no additional endocrine complaints, Reports as per HPI and Denies palpitations Hematologic/Lymphatic: Hematologic/Lymphatic: Reports no additional hematologic/lymphatic complaints and Reports as per HPI Allergic/Immunologic: Allergic/Immunologic: Reports no additional allergic/immunologic complaints and Reports as per HPI [facility] Past Medical History Medical History (Updated 05/16/22 @ 11:03 by Tito Huynh MD) Dementia Hypertension Hypothyroidism Family History Pertinent family history: Unable to obtain any clear family history. Social History Social History Household Members: Other Household Members Other:: [facility] Housing: Detention Unable to assess alcohol history related to: Refusing to respond Patient Tobacco Use Status: Never used Tobacco Use of substances other than those prescribed or required for medical reasons: Refusing to respond Currently Displaying Signs/Symptoms of Drug Intoxication Withdrawal: No Advance Directives: Yes Advance Directives on File: Yes Advance Directives Date on File: 05/15/22 Do you have thoughts of harming others: None Do you have a plan to hurt others: No Plan Recently lost weight without trying: Unsure Nutrition Risks: No Nutritional Risk Patient : No : No Poor oral hygiene: No service: No Current occupational status: retired Meds Allergies Allergy/AdvReac Type Severity Reaction Status Date / Time codeine Allergy Unknown Unknown Verified 01/21/22 11:43 Active Medications: Current Medications Acetaminophen (Acetaminophen 325 Mg Tablet) 650 mg PO Q6H PRN PRN Reason: Pain, Mild (Pain Scale 1-3) Acetaminophen (Acetaminophen 325 Mg Tablet) 650 mg PO BID [facility] Last Admin: 05/16/22 10:37 Dose: 650 mg Acetaminophen (Acetaminophen 325 Mg Tablet) 650 mg PO Q6H PRN PRN Reason: ELEVATED TEMP/PAIN Atorvastatin Calcium (Atorvastatin Calcium 10 Mg Tablet) 20 mg PO DAILY [facility] Divalproex Sodium (Divalproex Sodium Sprinkles 125 Mg Martin.) 125 mg PO BID [facility] Docusate Sodium (Docusate Sodium 100 Mg Capsule) 100 mg PO DAILY PRN PRN Reason: Constipation Escitalopram Oxalate (Escitalopram Oxalate 5 Mg Tablet) 7.5 mg PO DAILY [facility] Last Admin: 05/16/22 10:37 Dose: 7.5 mg Heparin Sodium (Porcine) (Heparin Sodium,Porcine 5,000 Unit/Ml Vial) 2,400 unit 40 unit/kg (2400 unit) IVPUSH PROTOCOL BOLUS PRN; Protocol PRN Reason: 40 unit/kg - Heparin Protocol Heparin Sodium (Porcine) (Heparin Sodium,Porcine 5,000 Unit/Ml Vial) 4,800 unit 80 unit/kg (4800 unit) IVPUSH PROTOCOL BOLUS PRN; Protocol PRN Reason: 80 unit/kg - Heparin Protocol Heparin Sodium/Sodium Chloride (Heparin Sodium,Porcine/1/2ns) 25,000 unit in 250 mls @ 0 mls/hr IVCONT .Q0M [facility]; Protocol Last Titration: 05/16/22 05:21 Dose: 8 units/kg/hr, 4.8 mls/hr Levothyroxine Sodium (Levothyroxine Sodium 75 Mcg Tablet) 75 mcg PO DAILY@0600 [facility] Last Admin: 05/16/22 10:37 Dose: 75 mcg Lidocaine (Lidocaine 4 % Patch Adh..Patch) 1 patch TRANSDERMA DAILY [facility] Losartan Potassium (Losartan Potassium 25 Mg Tablet) 25 mg PO DAILY [facility]; Protocol Last Admin: 05/16/22 10:37 Dose: 25 mg Melatonin (Melatonin 3 Mg Tablet) 6 mg PO BEDTIME [facility] Multivitamins/Vitamin C (Multivitamin Tablet) 1 tab PO DAILY [facility] Omeprazole (Omeprazole 20 Mg Capsule.Dr) 20 mg PO DAILY@0630 [facility] Ondansetron HCl (Ondansetron Hcl 4 Mg/2 Ml Vial) 4 mg IVPUSH Q8H PRN PRN Reason: Nausea and Vomiting Pharmacy Consult (Consult Rx Perform Med Rec) 1 each MISCELLANE ONCE PRN PRN Reason: Consult order Polyethylene Glycol (Polyethylene Glycol 3350 17 Gm Powd.Pack) 17 gm PO DAILY [facility] Quetiapine Fumarate (Quetiapine Fumarate 25 Mg Tablet) 12.5 mg PO DAILY@1400 [facility] Sodium Chloride (0.9 % Sodium Chloride Flush 3 Ml Syringe) 3 ml IVFLUSH QSHIFT [facility] Last Admin: 05/16/22 08:01 Dose: 3 ml Tamsulosin HCl (Tamsulosin Hcl 0.4 Mg Capsule) 0.4 mg PO BEDTIME [facility] Home Medications Medication Instructions Recorded Confirmed Last Taken Type divalproex 125 mg tablet,delayed 125 mg PO BID 01/21/22 05/15/22 Unknown History release (Depakote) levothyroxine 75 mcg tablet 1 tab PO DAILY 01/21/22 05/15/22 Unknown History lidocaine 5 % topical patch 1 patch topical DAILY 01/21/22 05/15/22 Unknown History melatonin 5 mg tablet 5 mg PO BEDTIME 01/21/22 05/15/22 Unknown History multivitamin 1 tab PO DAILY 01/21/22 05/15/22 Unknown History omeprazole 20 mg capsule,delayed 20 mg PO DAILY 01/21/22 05/15/22 Unknown History release polyethylene glycol 3350 17 17 g PO DAILY 01/21/22 05/15/22 Unknown History gram/dose oral powder (Miralax) quetiapine 25 mg tablet 12.5 mg PO DAILY@1400 01/21/22 05/15/22 Unknown History simvastatin 20 mg tablet 20 mg PO BEDTIME 01/21/22 05/15/22 Unknown History tamsulosin 0.4 mg capsule 0.4 mg PO BEDTIME 01/21/22 05/15/22 Unknown History acetaminophen 325 mg tablet 650 mg PO BID 05/15/22 05/15/22 Unknown History acetaminophen 325 mg tablet 650 mg PO Q6H PRN ELEVATED 05/15/22 05/15/22 Unknown History TEMP/PAIN escitalopram oxalate 5 mg tablet 7.5 mg PO DAILY 05/15/22 05/15/22 Unknown History losartan 25 mg tablet 25 mg PO DAILY 05/15/22 05/15/22 Unknown History Physical Exam Vital Signs: Vital Signs: Last Vital Signs Temp 98.0 F 05/16/22 08:00 Pulse 67 05/16/22 08:00 Resp 12 05/16/22 08:00 BP 151/85 H 05/16/22 08:00 Pulse Ox 90 L 05/16/22 08:00 O2 Del Method 05/16/22 08:00 BMI result Body Mass Index 22.4 Const: General: comfortable and no acute distress Orientation/consciousness: No patient oriented x3 HEENT: Other: Unremarkable Head: Yes normal to inspection Neck: Neck: Yes normal visual inspection Chest: Chest palpation & inspection: normal inspection of the chest Resp: Auscultation: clear to auscultation bilaterally Cardio: Palpation: normal PMI Heart sounds: S1 normal heart sound present, S2 normal heart sound present, no gallops, no murmurs and no rubs GI: Palpation (GI): Soft to palpation Back/Spine/Pelvis: Other: unremarkable Skin: General skin exam: no rashes or lesions noted Neuro: General: No patient oriented x3 Extrem: General: Yes normal to inspection Psych: Mental Status: mental status grossly abnormal Objective Labs and Meds Result diagrams: 05/16/22 04:49 05/16/22 04:49 Lab results: Laboratory Results - last 24 hr 05/15/22 05/15/22 05/15/22 15:34 15:34 15:34 WBC 10.8 RBC 3.94 L Hgb 12.0 Hct 36.7 L MCV 93.1 MCH 30.5 MCHC 32.7 RDW 14.2 Plt Count 209 MPV 10.6 Immature Gran % (Auto) 0.8 H Neut % (Auto) 68.9 Lymph % (Auto) 15.3 L [place] % (Auto) 9.4 Eos % (Auto) 4.7 H Baso % (Auto) 0.9 Lymph # (Auto) 1.6 [place] # (Auto) 1.0 Eos # (Auto) 0.5 H Baso # (Auto) 0.1 Abs Immat Gran (auto) 0.09 H Absolute Neuts (auto) 7.4 Absolute Nucleated RBC 0.000 Nucleated RBC % (auto) 0.0 PT 12.5 INR 1.1 APTT 30.7 aPTT Heparin Protocol Sodium 138 Potassium 4.4 Chloride 105 Carbon Dioxide 23 Anion Gap 14 BUN 33 H Creatinine 0.96 Estim Creat Clear Calc 40.8 Estimated GFR 55 Random Glucose 103 Calcium 9.0 Total Bilirubin 0.2 AST 35 H ALT 25 Alkaline Phosphatase 103 Troponin I High Sens Total Protein 7.5 Albumin 3.8 COVID-19 ([facility]IR) COVID-19 [employer] 05/15/22 05/15/22 05/15/22 15:34 17:07 20:05 WBC 13.0 H RBC 4.25 Hgb 12.7 Hct 38.5 MCV 90.6 MCH 29.9 MCHC 33.0 RDW 14.3 Plt Count 234 MPV 10.4 Immature Gran % (Auto) Neut % (Auto) Lymph % (Auto) [place] % (Auto) Eos % (Auto) Baso % (Auto) Lymph # (Auto) [place] # (Auto) Eos # (Auto) Baso # (Auto) Abs Immat Gran (auto) Absolute Neuts (auto) Absolute Nucleated RBC 0.000 Nucleated RBC % (auto) 0.0 PT INR APTT aPTT Heparin Protocol Sodium Potassium Chloride Carbon Dioxide Anion Gap BUN Creatinine Estim Creat Clear Calc Estimated GFR Random Glucose Calcium Total Bilirubin AST ALT Alkaline Phosphatase Troponin I High Sens 54.1 H* 68.0 H* D Total Protein Albumin COVID-19 (DAMIR) COVID-19 [employer] 05/15/22 05/15/22 05/16/22 20:05 20:09 03:09 WBC RBC Hgb Hct MCV MCH MCHC RDW Plt Count MPV Immature Gran % (Auto) Neut % (Auto) Lymph % (Auto) [place] % (Auto) Eos % (Auto) Baso % (Auto) Lymph # (Auto) [place] # (Auto) Eos # (Auto) Baso # (Auto) Abs Immat Gran (auto) Absolute Neuts (auto) Absolute Nucleated RBC Nucleated RBC % (auto) PT 11.5 INR 1.0 APTT aPTT Heparin Protocol 30.6 L 145.7 H* D Sodium Potassium Chloride Carbon Dioxide Anion Gap BUN Creatinine Estim Creat Clear Calc Estimated GFR Random Glucose Calcium Total Bilirubin AST ALT Alkaline Phosphatase Troponin I High Sens Total Protein Albumin COVID-19 ([facility]AMIR) Negative COVID-19 Clin Com See Note 05/16/22 05/16/22 05/16/22 04:49 04:49 04:49 WBC 12.3 H RBC 3.81 L Hgb 11.6 L Hct 34.8 L MCV 91.3 MCH 30.4 MCHC 33.3 RDW 14.3 Plt Count 208 MPV 10.2 Immature Gran % (Auto) Cancelled Neut % (Auto) Cancelled Lymph % (Auto) Cancelled [place] % (Auto) Cancelled Eos % (Auto) Cancelled Baso % (Auto) Cancelled Lymph # (Auto) Cancelled [place] # (Auto) Cancelled Eos # (Auto) Cancelled Baso # (Auto) Cancelled Abs Immat Gran (auto) Cancelled Absolute Neuts (auto) Cancelled Absolute Nucleated RBC 0.000 Nucleated RBC % (auto) 0.0 PT 12.3 INR 1.1 APTT aPTT Heparin Protocol Sodium 141 Potassium 4.0 Chloride 110 H Carbon Dioxide 21 L Anion Gap 14 BUN 30 H Creatinine 0.92 Estim Creat Clear Calc 42.6 Estimated GFR 58 Random Glucose 90 Calcium 8.9 Total Bilirubin AST ALT Alkaline Phosphatase Troponin I High Sens Total Protein Albumin COVID-19 (DAMIR) COVID-19 Clin Com 05/16/22 05/16/22 04:49 08:34 WBC RBC Hgb Hct MCV MCH MCHC RDW Plt Count MPV Immature Gran % (Auto) Neut % (Auto) Lymph % (Auto) [place] % (Auto) Eos % (Auto) Baso % (Auto) Lymph # (Auto) [place] # (Auto) Eos # (Auto) Baso # (Auto) Abs Immat Gran (auto) Absolute Neuts (auto) Absolute Nucleated RBC Nucleated RBC % (auto) PT INR APTT aPTT Heparin Protocol 78.7 H D Sodium Potassium Chloride Carbon Dioxide Anion Gap BUN Creatinine Estim Creat Clear Calc Estimated GFR Random Glucose Calcium Total Bilirubin AST ALT Alkaline Phosphatase Troponin I High Sens 43.6 H Total Protein Albumin COVID-19 (DAMIR) COVID-19 Clin Com ECG Interpretation: EKG with sinus rhythm, leftward axis and nonspecific ST-T changes; 93/Min Imaging Radiologist's impression: Impressions Chest X-Ray 05/15/22 19:25 IMPRESSION: Chronic appearing changes similar to the 01/21/2022 study. Assessment and Plan (1) NSTEMI (non-ST elevated myocardial infarction): Status: Acute Plan Low-grade troponin leaks including 54, 68 and 43. EKG with nonspecific changes. Report of chest pain before I will but nothing in the hospital. Has baseline dementia. Overall, recommend medical management only. Can to 48 hours IV heparin, aspirin, statins. Echocardiogram. Not a good candidate for invasive strategies. Time Spent With Patient Time: Total time managing care of this patient today 70 minutes. Procedures Date of Service Date of Service: 05/16/22
[2022-05-16 11:33] VITALS: BP 153/66; PULSE 64; RESP 12; TEMP 36.4; O2SAT 92
[2022-05-16 12:09] LABS: PTT Heparin Drip 47.6 SEC (53-77.9)
[2022-05-16] MEDS: Heparin Sodium,Porcine 5,000 UNIT/ML VIAL 2400 UNIT IVPUSH (12:31)
[2022-05-16] MEDS: QUEtiapine Fumarate 25 MG TABLET 12.5 MG PO (12:31)
--- NOTE | 2022-05-16 12:39 | HO.PM.IMPN ---
Subjective Subjective Date of Service: 05/16/22 Interval History: 56-year-old female admitted with complaints of chest pain; none since admission. No acute issues overnight Review of Systems Denies chest pain Denies shortness of breath Denies nausea vomiting diarrhea Denies fever chills Physical Exam Vital Signs: Vital Signs: Last Vital Signs Temp 97.5 F 05/16/22 11:33 Pulse 64 05/16/22 11:33 Resp 12 05/16/22 11:33 BP 153/66 H 05/16/22 11:33 Pulse Ox 92 05/16/22 11:33 O2 Del Method 05/16/22 11:33 BMI result Body Mass Index 22.4 Const: Other: Awake/confused Resp: Other: Clear to auscultation bilaterally no rales rhonchi or wheezes Cardio: Other: No S4; positive S1-S2; no S3 murmurs rubs or gallops GI: Other: Soft nontender nondistended normoactive bowel sounds Extrem: Other: No edema bilaterally Objective Data Active Medications Acetaminophen (Acetaminophen 325 Mg Tablet) 650 mg PO Q6H PRN PRN Reason: Pain, Mild (Pain Scale 1-3) Acetaminophen (Acetaminophen 325 Mg Tablet) 650 mg PO BID [facility] Last Admin: 05/16/22 10:37 Dose: 650 mg Documented By: SAM Acetaminophen (Acetaminophen 325 Mg Tablet) 650 mg PO Q6H PRN PRN Reason: ELEVATED TEMP/PAIN Atorvastatin Calcium (Atorvastatin Calcium 10 Mg Tablet) 20 mg PO DAILY [facility] Divalproex Sodium (Divalproex Sodium Sprinkles 125 Mg Martin.) 125 mg PO BID [facility] Docusate Sodium (Docusate Sodium 100 Mg Capsule) 100 mg PO DAILY PRN PRN Reason: Constipation Escitalopram Oxalate (Escitalopram Oxalate 5 Mg Tablet) 7.5 mg PO DAILY [facility] Last Admin: 05/16/22 10:37 Dose: 7.5 mg Documented By: SAM Heparin Sodium (Porcine) (Heparin Sodium,Porcine 5,000 Unit/Ml Vial) 2,400 unit 40 unit/kg (2400 unit) IVPUSH PROTOCOL BOLUS PRN; Protocol PRN Reason: 40 unit/kg - Heparin Protocol Last Admin: 05/16/22 12:31 Dose: 2,400 unit Documented By: SAM Heparin Sodium (Porcine) (Heparin Sodium,Porcine 5,000 Unit/Ml Vial) 4,800 unit 80 unit/kg (4800 unit) IVPUSH PROTOCOL BOLUS PRN; Protocol PRN Reason: 80 unit/kg - Heparin Protocol Heparin Sodium/Sodium Chloride (Heparin Sodium,Porcine/1/2ns) 25,000 unit in 250 mls @ 0 mls/hr IVCONT .Q0M [facility]; Protocol Last Titration: 05/16/22 12:26 Dose: 10 units/kg/hr, 6 mls/hr Documented By: SAM Co-signed By: ROSE MARIE Levothyroxine Sodium (Levothyroxine Sodium 75 Mcg Tablet) 75 mcg PO DAILY@0600 [facility] Last Admin: 05/16/22 10:37 Dose: 75 mcg Documented By: SAM Lidocaine (Lidocaine 4 % Patch Adh..Patch) 1 patch TRANSDERMA DAILY [facility] Losartan Potassium (Losartan Potassium 25 Mg Tablet) 25 mg PO DAILY [facility]; Protocol Last Admin: 05/16/22 10:37 Dose: 25 mg Documented By: SAM Melatonin (Melatonin 3 Mg Tablet) 6 mg PO BEDTIME [facility] Multivitamins/Vitamin C (Multivitamin Tablet) 1 tab PO DAILY [facility] Omeprazole (Omeprazole 20 Mg Capsule.Dr) 20 mg PO DAILY@0630 [facility] Ondansetron HCl (Ondansetron Hcl 4 Mg/2 Ml Vial) 4 mg IVPUSH Q8H PRN PRN Reason: Nausea and Vomiting Pharmacy Consult (Consult Rx Perform Med Rec) 1 each MISCELLANE ONCE PRN PRN Reason: Consult order Polyethylene Glycol (Polyethylene Glycol 3350 17 Gm Powd.Pack) 17 gm PO DAILY [facility] Quetiapine Fumarate (Quetiapine Fumarate 25 Mg Tablet) 12.5 mg PO DAILY@1400 [facility] Last Admin: 05/16/22 12:31 Dose: 12.5 mg Documented By: SAM Sodium Chloride (0.9 % Sodium Chloride Flush 3 Ml Syringe) 3 ml IVFLUSH QSHIFT [facility] Last Admin: 05/16/22 08:01 Dose: 3 ml Documented By: SAM Tamsulosin HCl (Tamsulosin Hcl 0.4 Mg Capsule) 0.4 mg PO BEDTIME [facility] Labs CBC & Chem 7: 05/16/22 04:49 05/16/22 04:49 Labs: Laboratory Results - last 24 hr 05/15/22 05/15/22 05/15/22 15:34 15:34 15:34 MCV 93.1 MCH 30.5 MCHC 32.7 RDW 14.2 Plt Count 209 MPV 10.6 Immature Gran % (Auto) 0.8 H Neut % (Auto) 68.9 Lymph % (Auto) 15.3 L [place] % (Auto) 9.4 Eos % (Auto) 4.7 H Baso % (Auto) 0.9 Lymph # (Auto) 1.6 [place] # (Auto) 1.0 Eos # (Auto) 0.5 H Baso # (Auto) 0.1 Abs Immat Gran (auto) 0.09 H Absolute Neuts (auto) 7.4 Absolute Nucleated RBC 0.000 Nucleated RBC % (auto) 0.0 PT 12.5 INR 1.1 APTT 30.7 aPTT Heparin Protocol Anion Gap 14 Estim Creat Clear Calc 40.8 Estimated GFR 55 Random Glucose 103 Calcium 9.0 Total Bilirubin 0.2 AST 35 H ALT 25 Alkaline Phosphatase 103 Troponin I High Sens Total Protein 7.5 Albumin 3.8 COVID-19 (DAMIR) COVID-[place] 05/15/22 05/15/22 05/15/22 15:34 17:07 20:05 MCV 90.6 MCH 29.9 MCHC 33.0 RDW 14.3 Plt Count 234 MPV 10.4 Immature Gran % (Auto) Neut % (Auto) Lymph % (Auto) [place] % (Auto) Eos % (Auto) Baso % (Auto) Lymph # (Auto) [place] # (Auto) Eos # (Auto) Baso # (Auto) Abs Immat Gran (auto) Absolute Neuts (auto) Absolute Nucleated RBC 0.000 Nucleated RBC % (auto) 0.0 PT INR APTT aPTT Heparin Protocol Anion Gap Estim Creat Clear Calc Estimated GFR Random Glucose Calcium Total Bilirubin AST ALT Alkaline Phosphatase Troponin I High Sens 54.1 H* 68.0 H* D Total Protein Albumin COVID-19 (DAMIR) COVID-19 SureVisit 05/15/22 05/15/22 05/16/22 20:05 20:09 03:09 MCV MCH MCHC RDW Plt Count MPV Immature Gran % (Auto) Neut % (Auto) Lymph % (Auto) [place] % (Auto) Eos % (Auto) Baso % (Auto) Lymph # (Auto) [place] # (Auto) Eos # (Auto) Baso # (Auto) Abs Immat Gran (auto) Absolute Neuts (auto) Absolute Nucleated RBC Nucleated RBC % (auto) PT 11.5 INR 1.0 APTT aPTT Heparin Protocol 30.6 L 145.7 H* D Anion Gap Estim Creat Clear Calc Estimated GFR Random Glucose Calcium Total Bilirubin AST ALT Alkaline Phosphatase Troponin I High Sens Total Protein Albumin COVID-19 (DAMIR) Negative COVID-19 Clin Com See Note 05/16/22 05/16/22 05/16/22 04:49 04:49 04:49 MCV 91.3 MCH 30.4 MCHC 33.3 RDW 14.3 Plt Count 208 MPV 10.2 Immature Gran % (Auto) Cancelled Neut % (Auto) Cancelled Lymph % (Auto) Cancelled [place] % (Auto) Cancelled Eos % (Auto) Cancelled Baso % (Auto) Cancelled Lymph # (Auto) Cancelled [place] # (Auto) Cancelled Eos # (Auto) Cancelled Baso # (Auto) Cancelled Abs Immat Gran (auto) Cancelled Absolute Neuts (auto) Cancelled Absolute Nucleated RBC 0.000 Nucleated RBC % (auto) 0.0 PT 12.3 INR 1.1 APTT aPTT Heparin Protocol Anion Gap 14 Estim Creat Clear Calc 42.6 Estimated GFR 58 Random Glucose 90 Calcium 8.9 Total Bilirubin AST ALT Alkaline Phosphatase Troponin I High Sens Total Protein Albumin COVID-19 (DAMIR) COVID-19 Clin Com 05/16/22 05/16/22 05/16/22 04:49 08:34 11:31 MCV MCH MCHC RDW Plt Count MPV Immature Gran % (Auto) Neut % (Auto) Lymph % (Auto) [place] % (Auto) Eos % (Auto) Baso % (Auto) Lymph # (Auto) [place] # (Auto) Eos # (Auto) Baso # (Auto) Abs Immat Gran (auto) Absolute Neuts (auto) Absolute Nucleated RBC Nucleated RBC % (auto) PT INR APTT aPTT Heparin Protocol 78.7 H D 47.6 L D Anion Gap Estim Creat Clear Calc Estimated GFR Random Glucose Calcium Total Bilirubin AST ALT Alkaline Phosphatase Troponin I High Sens 43.6 H Total Protein Albumin COVID-19 (DAMIR) COVID-19 Clin Com Assessment and Plan (1) NSTEMI (non-ST elevated myocardial infarction): Status: Acute (2) Hypertension: Status: Acute (3) Dementia: Status: Acute Plan 86-year-old female with past medical history of dementia, hypertension, hypothyroidism, presents to the hospital after complaining of chest pain; workup essentially unremarkable 1.NSTEMI - as per Cardiology will complete 48 hours of heparin -continue with statin aspirin; not a candidate for aggressive workup 2.Hypertension - acceptable control on current therapies -adjust as indicated 3.Hypothyroidism - continue levothyroxine 4.Dementia - continue Seroquel DVT prophylaxis: Heparin code status: DNR DNI per [facility] Requires ongoing hospitalization to complete heparin drip. Will then be switched to orals Time Spent With Patient Time: Total time managing care of this patient today ____ minutes. Quality Stroke Does the patient have a stroke diagnosis?: No VTE Prior VTE?: No VTE Risk Level:: Medical - moderate - high VTE Device Contraindication: Treatment Not Indicated VTE Drug Contraindication: N/A - Med Ordered
[2022-05-16 15:52] VITALS: BP 127/59; PULSE 63; RESP 19; TEMP 36.5; O2SAT 93
[2022-05-16 19:48] LABS: PTT Heparin Drip 137.9 SEC (53-77.9)
[2022-05-16 20:00] VITALS: BP 106/52; PULSE 58; RESP 19; TEMP 36.5; O2SAT 92
[2022-05-16 20:48] LABS: Glucose, Whole Blood 80 mg/dL (60-115)
[2022-05-16 21:39] LABS: PTT Heparin Drip 72.1 SEC (53-77.9)
[2022-05-16] MEDS: Heparin Sodium,Porcine/1/2NS 25,000 UNIT/250 ML IV.SOLN 3.6 UNIT IVCONT (22:10)
[2022-05-16] MEDS: Tamsulosin HCL 0.4 MG CAPSULE PO (22:13)
[2022-05-16] MEDS: Melatonin 3 MG TABLET 6 MG PO (22:13)
[2022-05-16] MEDS: Divalproex Sodium Sprinkles 125 MG CAP.DR.SPR PO (22:13)
[2022-05-17] VITALS (7 sets, daily range): BP systolic 96–126; BP diastolic 44–60; PULSE 53–94; RESP 12–18; TEMP 35.8–36.6; O2SAT 92–96
[2022-05-17 04:49] LABS: PTT Heparin Drip 46.1 SEC (53-77.9)
[2022-05-17] MEDS: Heparin Sodium,Porcine 5,000 UNIT/ML VIAL 2400 UNIT IVPUSH (05:06)
[2022-05-17] MEDS: Levothyroxine Sodium 75 MCG TABLET PO (05:07)
[2022-05-17 06:10] LABS: Appearance Urine Turbid; Color Urine Dark Yellow; Glucose Urine UA Negative (Negative); Leukocyte Esterase Urine Small (1+) (Negative); Nitrite Urine Positive (Negative); PH 5.5 (5.0-9.0); Specific Gravity - Urine >= 1.030 (1.005-1.025); UMIC TRIGGER UACC YES; Urine Blood Negative (Negative); Urine Ketones Trace mg/dL (Negative); Urine Protein 100 (2+) mg/dL (Neg-Trace)
[2022-05-17 07:24] LABS: Bacteria Urine 4+ (None Seen); Calcium Oxalate Crystals Urine Present; Hyaline Casts Urine 0-2 /LPF (0-2); RBC Urine >20 /HPF (0-2); UACC Culture Trigger YES; WBC Urine >50 /HPF (0-5)
[2022-05-17] MEDS: Escitalopram Oxalate 5 MG TABLET 7.5 MG PO (08:36)
[2022-05-17] MEDS: Atorvastatin Calcium 10 MG TABLET 20 MG PO (08:36)
[2022-05-17] MEDS: Acetaminophen 325 MG TABLET 650 MG PO ×2 (08:37→21:02)
[2022-05-17] MEDS: Losartan Potassium 25 MG TABLET PO (08:37)
[2022-05-17] MEDS: Divalproex Sodium Sprinkles 125 MG CAP.DR.SPR PO ×2 (08:37→21:03)
[2022-05-17] MEDS: Omeprazole 20 MG CAPSULE.DR PO (08:38)
[2022-05-17] MEDS: Multivitamin TABLET 1 TAB PO (08:38)
[2022-05-17] MEDS: polyethylene glycoL 3350 17 GM POWD.PACK PO (08:39)
[2022-05-17] MEDS: 0.9 % Sodium Chloride Flush 3 ML SYRINGE IVFLUSH ×3 (08:39→21:06)
--- NOTE | 2022-05-17 11:09 | HO.PM.IMPN ---
Subjective Subjective Date of Service: 05/17/22 Interval History: Admitted with non ST elevation [place]. Completed heparin drip without issue. Tolerant of Eliquis. No further chest pain since admission Review of Systems Denies chest pain Denies shortness of breath Denies nausea vomiting diarrhea Denies fever chills Physical Exam Vital Signs: Vital Signs: Last Vital Signs Temp 96.4 F L 05/17/22 08:00 Pulse 94 05/17/22 08:00 Resp 12 05/17/22 08:00 BP 111/55 L 05/17/22 08:00 Pulse Ox 92 05/17/22 08:00 O2 Del Method 05/17/22 08:00 BMI result Body Mass Index 22.4 Const: Other: Awake/confused Resp: Other: Clear to auscultation bilaterally no rales rhonchi or wheezes Cardio: Other: No S4; positive S1-S2; no S3 murmurs rubs or gallops GI: Other: Soft nontender nondistended normoactive bowel sounds Extrem: Other: No edema bilaterally Objective Data Active Medications Acetaminophen (Acetaminophen 325 Mg Tablet) 650 mg PO Q6H PRN PRN Reason: Pain, Mild (Pain Scale 1-3) Acetaminophen (Acetaminophen 325 Mg Tablet) 650 mg PO BID [facility] Last Admin: 05/17/22 08:37 Dose: 650 mg Documented By: SAM Acetaminophen (Acetaminophen 325 Mg Tablet) 650 mg PO Q6H PRN PRN Reason: ELEVATED TEMP/PAIN Atorvastatin Calcium (Atorvastatin Calcium 10 Mg Tablet) 20 mg PO DAILY [facility] Last Admin: 05/17/22 08:36 Dose: 20 mg Documented By: SAM Divalproex Sodium (Divalproex Sodium Sprinkles 125 Mg ) 125 mg PO BID [facility] Last Admin: 05/17/22 08:37 Dose: 125 mg Documented By: SAM Docusate Sodium (Docusate Sodium 100 Mg Capsule) 100 mg PO DAILY PRN PRN Reason: Constipation Escitalopram Oxalate (Escitalopram Oxalate 5 Mg Tablet) 7.5 mg PO DAILY [facility] Last Admin: 05/17/22 08:36 Dose: 7.5 mg Documented By: SAM Heparin Sodium (Porcine) (Heparin Sodium,Porcine 5,000 Unit/Ml Vial) 2,400 unit 40 unit/kg (2400 unit) IVPUSH PROTOCOL BOLUS PRN; Protocol PRN Reason: 40 unit/kg - Heparin Protocol Last Admin: 05/17/22 05:06 Dose: 2,400 unit Documented By: AMBROSIO Heparin Sodium (Porcine) (Heparin Sodium,Porcine 5,000 Unit/Ml Vial) 4,800 unit 80 unit/kg (4800 unit) IVPUSH PROTOCOL BOLUS PRN; Protocol PRN Reason: 80 unit/kg - Heparin Protocol Heparin Sodium/Sodium Chloride (Heparin Sodium,Porcine/1/2ns) 25,000 unit in 250 mls @ 0 mls/hr IVCONT .Q0M [facility]; Protocol Last Titration: 05/17/22 04:59 Dose: 8 units/kg/hr, 4.8 mls/hr Documented By: AMBROSIO Co-signed By: MAISHA Levothyroxine Sodium (Levothyroxine Sodium 75 Mcg Tablet) 75 mcg PO DAILY@0600 [facility] Last Admin: 05/17/22 05:07 Dose: 75 mcg Documented By: AMBROSIO Lidocaine (Lidocaine 4 % Patch Adh..Patch) 1 patch TRANSDERMA DAILY [facility] Last Admin: 05/17/22 08:49 Dose: Not Given Documented By: SAM Non-Admin Reason: Patient Refused Losartan Potassium (Losartan Potassium 25 Mg Tablet) 25 mg PO DAILY [facility]; Protocol Last Admin: 05/17/22 08:37 Dose: 25 mg Documented By: SAM Melatonin (Melatonin 3 Mg Tablet) 6 mg PO BEDTIME [facility] Last Admin: 05/16/22 22:13 Dose: 6 mg Documented By: AMBROSIO Multivitamins/Vitamin C (Multivitamin Tablet) 1 tab PO DAILY [facility] Last Admin: 05/17/22 08:38 Dose: 1 tab Documented By: SAM Omeprazole (Omeprazole 20 Mg Capsule.Dr) 20 mg PO DAILY@0630 [facility] Last Admin: 05/17/22 08:38 Dose: 20 mg Documented By: SAM Ondansetron HCl (Ondansetron Hcl 4 Mg/2 Ml Vial) 4 mg IVPUSH Q8H PRN PRN Reason: Nausea and Vomiting Pharmacy Consult (Consult Rx Perform Med Rec) 1 each MISCELLANE ONCE PRN PRN Reason: Consult order Polyethylene Glycol (Polyethylene Glycol 3350 17 Gm Powd.Pack) 17 gm PO DAILY [facility] Last Admin: 05/17/22 08:39 Dose: 17 gm Documented By: SAM Quetiapine Fumarate (Quetiapine Fumarate 25 Mg Tablet) 12.5 mg PO DAILY@1400 [facility] Last Admin: 05/16/22 12:31 Dose: 12.5 mg Documented By: SAM Sodium Chloride (0.9 % Sodium Chloride Flush 3 Ml Syringe) 3 ml IVFLUSH QSHIFT [facility] Last Admin: 05/17/22 08:39 Dose: 3 ml Documented By: SAM Tamsulosin HCl (Tamsulosin Hcl 0.4 Mg Capsule) 0.4 mg PO BEDTIME [facility] Last Admin: 05/16/22 22:13 Dose: 0.4 mg Documented By: AMBROSIO Labs CBC & Chem 7: 05/16/22 04:49 05/16/22 04:49 Labs: Laboratory Results - last 24 hr 05/16/22 05/16/22 05/16/22 11:31 18:56 20:34 aPTT Heparin Protocol 47.6 L D 137.9 H* D POC Glucose 80 Urine Color Urine Appearance Urine pH Ur Specific [place] Urine Protein Urine Glucose (UA) Urine Ketones Urine Blood Urine Nitrite Ur Leukocyte Esterase Urine RBC Urine WBC Ur Squamous Epith Cells Calcium Oxalate Crystal Urine Bacteria Hyaline Casts 05/16/22 05/17/22 05/17/22 20:59 04:30 05:15 aPTT Heparin Protocol 72.1 D 46.1 L D POC Glucose Urine Color Dark Yellow Urine Appearance Turbid Urine pH 5.5 Ur Specific [place] >= 1.030 H Urine Protein 100 (2+) H Urine Glucose (UA) Negative Urine Ketones Trace Urine Blood Negative Urine Nitrite Positive H Ur Leukocyte Esterase Small (1+) H Urine RBC >20 H Urine WBC >50 H Ur Squamous Epith Cells 3-5 Calcium Oxalate Crystal Present Urine Bacteria 4+ Hyaline Casts 0-2 Assessment and Plan (1) NSTEMI (non-ST elevated myocardial infarction): Status: Acute (2) Hypertension: Status: Acute Plan 86-year-old female with past medical history of dementia, hypertension, hypothyroidism, presents to the hospital after complaining of chest pain; workup essentially unremarkable 1.NSTEMI - as per Cardiology will completed 48 hours of heparin... Eliquis to started -continue with statin aspirin; not a candidate for aggressive workup -complete myocardial perfusion scan in a.m. 2.Hypertension - acceptable control on current therapies -adjust as indicated 3.Hypothyroidism - continue levothyroxine 4.Dementia - continue Seroquel DVT prophylaxis: Heparin code status: DNR DNI per [facility] Requires ongoing hospitalization to complete heparin drip. Will then be switched to orals Time Spent With Patient Time: Total time managing care of this patient today ____ minutes. Quality Stroke Does the patient have a stroke diagnosis?: No VTE Prior VTE?: No VTE Risk Level:: Medical - moderate - high VTE Device Contraindication: Treatment Not Indicated VTE Drug Contraindication: N/A - Med Ordered
[2022-05-17 11:33] LABS: PTT Heparin Drip 100.5 SEC (53-77.9)
[2022-05-17] MEDS: QUEtiapine Fumarate 25 MG TABLET 12.5 MG PO (13:59)
[2022-05-17 18:34] LABS: PTT Heparin Drip 37.6 SEC (53-77.9)
--- NOTE | 2022-05-17 19:24 | PC.NURSE ---
Pt on heparin drip. Received a ptt of 37.6 at this time. Per pharmacy only increase by 1 unit/kg and not to give a bolus. Pt heparin drip currently running at 6units/kg, no bolus given. Heparin drip to be DC at 2200. This would be the 48hr radha the heparin drip should be running per cardiology. Dr. Bear aware and confirmed via telephone that this is the plan.
[2022-05-17] MEDS: Tamsulosin HCL 0.4 MG CAPSULE PO (21:04)
[2022-05-17] MEDS: Melatonin 3 MG TABLET 6 MG PO (21:04)
[2022-05-17] MEDS: cefTRIAXone sodium 1 GM in 0.9 % Sodium Chloride 50 ML IV (22:26)
[2022-05-18 01:25] LABS: PTT Heparin Drip 31.4 SEC (53-77.9)
[2022-05-18] MEDS: Omeprazole 20 MG CAPSULE.DR PO (04:52)
[2022-05-18] MEDS: Levothyroxine Sodium 75 MCG TABLET PO (04:52)
--- NOTE | 2022-05-18 05:20 | PC.NURSE ---
2200 Heparin drip D/C confirmed with Dr Bear via tiger text @ 1669.
[2022-05-18 05:52] VITALS: BMI 20.9
--- NOTE | 2022-05-18 07:00 | CA_ITS ---
Transthoracic Echocardiogram Patient (Last, First, Middle): Felicia Resendiz, Gender: Female Date of : 1935 Age: 86 Procedure Date: 05/18/2022 Procedure Type: Transthoracic Echocardiogram [place] [facility] [place]: 167.64 cm Weight: 58.51 kg BSA: 1.66 m2 Heart Rate: 77 bpm BP: 97 / 45 mmHg Seat Cover Maker: CHICHO Referring MD: Charles Aleman MD Symptoms: NSTEMI Study Quality: Technically Difficult ECG Rhythm: Sinus Conclusions: - The left ventricular systolic function is hyperdynamic. The visually estimated ejection fraction is >70%. There is no evidence of regional wall motion abnormalities. - Normal right ventricular cavity size and systolic function. - Limited study because the patient was not cooperative. Findings Procedure Information The quality of the study was technically difficult. The study quality is limited by an uncooperative patient. Left Ventricle Normal left ventricular cavity size. There is mildly increased left ventricular wall thickness. The left ventricular systolic function is hyperdynamic. The visually estimated ejection fraction is >70%. There is no evidence of regional wall motion abnormalities. Diastolic function is normal for age. Spectral Doppler is indicative of an impaired relaxation filling pattern. E/E prime ratio is between 8 and 15 consistent with indeterminate filling pressures. Right Ventricle Normal right ventricular cavity size and systolic function. Atria The left atrium was not well visualized. The right atrium was not well visualized. Aortic Valve The aortic valve was not well visualized. There is no aortic valve stenosis. There is no aortic valve regurgitation. Mitral Valve The mitral valve appears normal. There is no mitral valve regurgitation. There is no mitral valve stenosis. Tricuspid Valve The tricuspid valve was not well visualized. Tricuspid regurgitation envelope is inadequate for calculation of right ventricular systolic pressure. Indeterminate right atrial pressure. Great Vessels All visible segments of the aorta are normal in size. The pulmonary artery was not well visualized. Venous The inferior vena cava was not well visualized. Pericardium/Pleural There is no evidence of pericardial effusion. Prior Study Comparison No prior study available for comparison. Measurements 2D Linear Measurements IVSd: 1.27 0.6-0.9/0.6-1.0 cm LVIDd: 3.17 3.9-5.3/4.2-5.9 cm LVIDd Index: 1.91 2.4-3.2/2.2-3.1 cm/m2 LVIDs: 1.93 2.0-3.6 cm LVPWd: 1.11 0.7-1.1 cm LA Diam: 2.20 2.7-3.8/3.0-4.0 cm LAIDs Index: 1.33 1.5-2.3 cm/m2 LV Mass: 144.66 67-162/88-224 g LV Mass Index: 87.15 43-95/49-115 g/m2 LVOT Diam: 1.80 3.0+(-)1.3 cm Mitral Valve MV Pk E: 0.62 MV PK A: 0.98 MV Decel Time: 302.00 E/A: 0.60 E'Lateral: 4.68 E'Medial: 4.68 E/E' Med: 13.30 E/E' Lat: 13.30 PHT: 88.00 MVA PHT: 2.50 Decel [place]wood: 2.06 Aortic Valve AoV Pk Petar: 1.06 AoV Mn Petar: 0.74 AoV VTI: 0.22 AoV Pk Grad: 4.00 Aov Mn Grad: 3.00 STACEY Cont.VTI: 1.92 LVOT LVOT Pk Petar: 0.82 LVOT Mn Petar: 0.54 LVOT VTI: 0.17 LVOT Pk Grad: 3.00 LVOT Mn Grad: 1.00 LVOT Diam: 1.80 LVOT Area: 2.54 Diastolic Function MV Pk E: 0.62 MV Pk A: 0.98 E/A: 0.60 E'Medial: 4.68 E/E' Med: 13.30 E' Laterial: 4.68 E/E' Lat: 13.30 Right Ventricle TAPSE (mm): 23.00 TVS' Petar: 12.80 Great Vessels Aorta Sinus of Valsalva: 3.20 2.0-3.5 cm Pulmonary Valve PV Pk Petar: 0.88 Peak PV Grad: 3.00 Updated in Other Vendor System with Status of Final Blayne Aguillon MD electronically signed on 05/18/2022 12:25:35 PM with status of Final
[2022-05-18 08:00] VITALS: BP 126/66; PULSE 60; RESP 18; TEMP 36.2; O2SAT 91
--- NOTE | 2022-05-18 09:08 | P.CDIC_ITS ---
CDI Concurrent Query Documentation Clarification: PHYSICIAN'S DOCUMENTATION REQUEST Date of Query: 05/18/22908 Patient Name: Felicia Resendiz Admit Date: 05/15/22 Dear Doctor, A review of the medical record indicates additional documentation may be needed. Please review below and update the documentation accordingly. Clinical Indicators: Risk Factors/Clinical Indicators/Treatments Patient is confused, agitated, crying, very paranoid, trying to hurt herself. Continue Seroquel. If possible, please further clarify type of Confusion and any associated manifestations: Dementia, Vascular, Senile, Alzheimer's etc. Associated Manifestations: * Dementia without behavioral disturbance * Dementia with behavioral disturbance * Aggressive behavior * Combative behavior * Dementia with: * Confusion * Sundowning Encephalopathy, Toxic, metabolic etc. Other if known * Unable to determine Use of terms such as suspected, likely, concern for, or probable (associated with a specific diagnosis that is being evaluated, monitored, or treated as if it exists) are acceptable and can be coded in the inpatient setting, when documented at the time of discharge. Thank you, Eufemia Ng [facility], CDIS Extension: [phone] Please use your independent medical judgment in providing your response. THIS QUERY IS PART OF THE PERMANENT MEDICAL RECORD Provider Response: Other Other Diagnosis: Unable to determine
--- NOTE | 2022-05-18 09:08 | MHC.CDI.CONC ---
CDI Concurrent Query Documentation Clarification: PHYSICIAN'S DOCUMENTATION REQUEST Date of Query: 05/18/2209 Patient Name: Felicia Resendiz Admit Date: 05/15/22 Dear Doctor, A review of the medical record indicates additional documentation may be needed. Please review below and update the documentation accordingly. Clinical Indicators: Risk Factors/Clinical Indicators/Treatments Patient is confused, agitated, crying, very paranoid, trying to hurt herself. Continue Seroquel. If possible, please further clarify type of Confusion and any associated manifestations: Dementia, Vascular, Senile, Alzheimer's etc. Associated Manifestations: Dementia without behavioral disturbance Dementia with behavioral disturbance Aggressive behavior Combative behavior Dementia with: Confusion Sundowning Encephalopathy, Toxic, metabolic etc. Other if known Unable to determine Use of terms such as suspected, likely, concern for, or probable (associated with a specific diagnosis that is being evaluated, monitored, or treated as if it exists) are acceptable and can be coded in the inpatient setting, when documented at the time of discharge. Thank you, Eufemia Ng [facility], CDIS Extension: [phone] Please use your independent medical judgment in providing your response. THIS QUERY IS PART OF THE PERMANENT MEDICAL RECORD Provider Response: Other Other Diagnosis: Unable to determine
[2022-05-18] MEDS: Apixaban 2.5 MG TABLET PO (09:37)
[2022-05-18] MEDS: Escitalopram Oxalate 5 MG TABLET 7.5 MG PO (09:37)
[2022-05-18] MEDS: Losartan Potassium 25 MG TABLET PO (09:37)
[2022-05-18] MEDS: Atorvastatin Calcium 10 MG TABLET 20 MG PO (09:37)
[2022-05-18] MEDS: Multivitamin TABLET 1 TAB PO (09:38)
[2022-05-18] MEDS: 0.9 % Sodium Chloride Flush 3 ML SYRINGE IVFLUSH ×2 (09:38→13:55)
[2022-05-18] MEDS: Acetaminophen 325 MG TABLET 650 MG PO (09:38)
[2022-05-18] MEDS: Lidocaine 4 % Patch ADH..PATCH 1 PATCH TRANSDERMA (09:39)
[2022-05-18] MEDS: Divalproex Sodium Sprinkles 125 MG CAP.DR.SPR PO (09:41)
--- NOTE | 2022-05-18 11:43 | MHC.CM.PN ---
pt to be dcd today at 3 to [facility] [place]
[2022-05-18 12:00] VITALS: BP 138/62; PULSE 66; RESP 20; TEMP 36.1; O2SAT 95
--- NOTE | 2022-05-18 13:05 | PM.DS ---
DS: Providers Provider Date of Service: 05/18/22 Date of admission: 05/15/22 20:02 Date of discharge: 05/18/22 Primary care physician: Unknown Physician Consults: 05/15/22 20:01 Consult to Cardiology Routine Consulting Provider: Tito Huynh Reason for consultation: NSTEMI Has provider been notified: Yes DS: Diagnosis Discharge Diagnosis (1) NSTEMI (non-ST elevated myocardial infarction): Status: Acute (2) Hypertension: Status: Acute DS: Summary Hospital Course Hospital Course: 86-year-old female with past medical history of dementia , hypothyroidism, seizure disorder, hypertension, sent into the hospital after patient complained of chest pain.? Patient is very confused, agitated, crying, very paranoid, unable to get much history from her. ? On arrival to the ED patient hemodynamically stable Labs are significant for? WBC count of 13.0, troponin 54 increased to 68, EKG showed no significant ST T-wave changes suggestive of ACS, this case was discussed with Cardiology by ED physician, and patient was started on heparin drip [facility] Admitted to telemetry were troponins peaked mid 50s. EKG failed to demonstrate any acute changes. Patient maintained on heparin drip and seen by Cardiology. Cardiology recommended medical management with aspirin statins and good blood pressure control. 2D echo was done which failed to demonstrate any acute wall motion abnormalities and hyperdynamic EF of 70%. At this point in time to discharge back to long-term care. Time Spent with Patient Time attestation: Total time managing care of this patient today ____ minutes. Discharge coordination time: Greater than 30 minutes Quality: Safe Use of Opioids Does Pt have an Active Cancer Diagnosis on the Problem List?: No Quality: Stroke Does the patient have a stroke diagnosis?: No Physical Exam Vital Signs: Vital Signs: Last Vital Signs Temp 97.0 F 05/18/22 12:00 Pulse 66 05/18/22 12:00 Resp 20 05/18/22 12:00 BP 138/62 05/18/22 12:00 Pulse Ox 95 05/18/22 12:00 O2 Del Method 05/18/22 12:00 BMI result Body Mass Index 20.9 Const: Other: Awake/confused Resp: Other: Clear to auscultation bilaterally no rales rhonchi or wheezes Cardio: Other: No S4; positive S1-S2; no S3 murmurs rubs or gallops GI: Other: Soft nontender nondistended normoactive bowel sounds Extrem: Other: No edema bilaterally DS: Data Data Completed and Pending Labs on day of discharge: Laboratory Results - last 24 hr 05/17/22 05/18/22 18:10 01:10 aPTT Heparin Protocol 37.6 L D 31.4 L Preliminary micro results at discharge 05/17/22 05:15 Urine Culture - Preliminary Urine clean catch - Urine friend top Gram negative edd Discharge Plan Discharge Patient Disposition: [facility] Discharge Diagnosis: NSTEMI Referrals: [facility] [Other] - 1 Week Physician,[facility] [Primary Care Provider] - 1 Week Discharge Medications: Continued multivitamin Tablet 1 tab PO DAILY quetiapine 25 mg Tablet 12.5 mg PO DAILY@1400 levothyroxine 75 mcg tablet 1 tab PO DAILY tamsulosin 0.4 mg Capsule 0.4 mg PO BEDTIME simvastatin 20 mg Tablet 20 mg PO BEDTIME lidocaine 5 % Adhesive Patch,Medicated 1 patch TOPICAL DAILY Rx Instructions: leave on most painful area for up to 12 hrs divalproex [Depakote] 125 mg Tablet,Delayed Release (Dr/Ec) 125 mg PO BID omeprazole 20 mg Capsule,Delayed Release(Dr/Ec) 20 mg PO DAILY polyethylene glycol 3350 [Miralax] 17 gram/dose Powder 17 g PO DAILY melatonin 5 mg Tablet 5 mg PO BEDTIME losartan 25 mg Tablet 25 mg PO DAILY acetaminophen 325 mg Tablet 650 mg PO BID escitalopram oxalate 5 mg Tablet 7.5 mg PO DAILY acetaminophen 325 mg Tablet 650 mg PO Q6H PRN (Reason: ELEVATED TEMP/PAIN) Discharge Orders: Discharge Order (Routine); Ordered 05/18/22 Ordered By: Ubaldo Galarza Diet: Advance to usual diet Activity on Discharge: As tolerated Stand Alone Forms: Patient Portal Discharge page Care Plan Goals: Complete course of Ceftin to treat UTI Health Concerns: Resume all meds as ordered Plan of Treatment: As per receiving facility Assessment: See discharge summary
[2022-05-18 13:20] LABS: COVID-19 Test Negative (Negative); IDNOW Serial# 16C4AD1C
[2022-05-18] MEDS: QUEtiapine Fumarate 25 MG TABLET 12.5 MG PO (13:54)
--- NOTE | 2022-05-18 14:58 | P.PNCA_ITS ---
Subjective Subjective Date of Service: 05/18/22 Interval history: Denying any chest discomfort. Patient has dementia. Physical Exam Vital Signs: Last Vital Signs Temp 97.0 F 05/18/22 12:00 Pulse 66 05/18/22 12:00 Resp 20 05/18/22 12:00 BP 138/62 05/18/22 12:00 Pulse Ox 95 05/18/22 12:00 O2 Del Method 05/18/22 12:00 BMI result Body Mass Index 20.9 GENERAL APPEARANCE: in no acute distress. NECK: no carotid bruit, no jugular venous distention. SKIN: no suspicious lesions, warm and dry. HEART: no murmurs, regular rate and rhythm. LUNGS: clear to auscultation bilaterally. ABDOMEN: soft, nontender. EXTREMITIES: no edema. PERIPHERAL PULSES: equal. Objective Labs and Meds Result diagrams: 05/16/22 04:49 05/16/22 04:49 Lab results: Laboratory Results - last 24 hr 05/17/22 05/18/22 05/18/22 18:10 01:10 12:15 aPTT Heparin Protocol 37.6 L D 31.4 L COVID-19 (DAMIR) Negative COVID-19 Clin Com See Note Progress Note: A&P Assessment and plan (1) Chest pain: Status: Acute Plan 86-year-old female with advanced dementia is admitted with mildly abnormal troponin levels and reported chest pain. Patient has dementia and does not remember anything. Overall EKG was nonspecific. Echocardiography was limited because patient was not cooperative but limited views have not show any wall motion abnormalities and her LV is a she hyperdynamic. She is on Eliquis and I thing baby aspirin will just increase the risk of bleeding. I would not recommend antiplatelet therapy currently. She is not a candidate for any aggressive measures and history is quite limited currently. Overall no high- risk features and I think treatment will be conservative. Blood pressure control is good. Potentially can be discharged home or rehab. Signing off. Thank you for allowing me to participate in the care of your patient. Please f eel free to contact me if you have any questions. Time Spent With Patient Time: Total time managing care of this patient today ____ minutes. Progress Note: Quality Stroke Does the patient have a stroke diagnosis?: No Procedures Date of Service Date of Service: 05/18/22
--- NOTE | 2022-05-19 09:34 | P.CDIR_ITS ---
Documented by User: Eufemia Ng [facility], CDIS 05/19/22 09:41 Retrospective Query PHYSICIAN'S DOCUMENTATION REQUEST Date of Query: 05/19/22933 Patient Name: Felicia Resendiz Admit Date: 05/15/22 Dear Doctor, A review of the medical record indicates additional documentation may be needed. Please review below and update the documentation accordingly. Risk Factors/Clinical Indicators/Treatments H&P: 05/15 - History of Dementia, poor historian, unable to get history due to mental status. Refusing to respond, Accusing Doctor and nurse of trying to hurt her, confused, agitated, crying, very paranoid, trying to hurt herself. Continue Seroquel. If possible, please further clarify type of behavior's and any associated manifestations: Dementia/Encepalopathy, other etiology of behaviors: Disease Type: * Vascular * Senile * Alzheimer's * Pre-senile * Other * Unable to determine Associated Manifestations: * Dementia without behavioral disturbance * Dementia with behavioral disturbance * Aggressive behavior * Combative behavior * Violent behavior * Dementia with delirium * Confusion * Sundowning * Other ? please specify * Unable to determine Use of terms such as suspected, likely, concern for, or probable (associated with a specific diagnosis that is being evaluated, monitored, or treated as if it exists) are acceptable and can be coded in the inpatient setting, when documented at the time of discharge. Thank you, Eufemia Ng [facility], CDIS Extension: [phone] Please use your independent medical judgment in providing your response. THIS QUERY IS PART OF THE PERMANENT MEDICAL RECORD Documented by User: Ubaldo Galarza DO 06/21/22 12:45 Retrospective Query Provider Response: Other (Unable to determine etiology of dementia)
== END 2022-05-18 16:15 | DRG 282 ==
LOC: HO.ED 20:19 → HO.EDOVER 20:22 → HO.IMC 21:49
PROVIDERS: Admitting Provider Internal Medicine; Emergency Provider Student in an Organized Health Care Education/Training Program; Visit Provider Hospitalist
DX: I21.4 Non-ST elevation (NSTEMI) myocardial infarction (principal); E03.9 Hypothyroidism, unspecified; I10 Essential (primary) hypertension; Z66 Do not resuscitate; F03.90 Unspecified dementia, unspecified severity, without behavioral disturbance, psychotic disturbance, mood disturbance, and anxiety; G40.909 Epilepsy, unspecified, not intractable, without status epilepticus; Z20.822 Contact with and (suspected) exposure to COVID-19; Z79.890 Hormone replacement therapy; Z79.899 Other long term (current) drug therapy
CPT/HCPCS: 36415; 71045; 80048; 80053; 81001; 82947; 84484; 85025; 85027; 85610; 85730; 87086; 87088; 87186; 87635; 93005; 93306; 99285; J0696; J1200; Q9957

== ENCOUNTER 2022-08-02 14:12 | Emergency (ER) | payer MEDICARE, SELFPAY ==
--- NOTE | 2022-08-02 | ECG_ITS ---
Test Reason : CP Blood Pressure : / mmHG Vent. Rate : 086 BPM Atrial Rate : 086 BPM P-R Int : 142 ms QRS Dur : 088 ms QT Int : 364 ms P-R-T Axes : 088 -52 062 degrees QTc Int : 435 ms Normal sinus rhythm Left axis deviation Abnormal ECG When compared with ECG of 15-MAY-2022 18:59, [place] interval has decreased Referred By: Lauren Conley Electronically Signed By:LARISSA JONES
--- NOTE | ~2022-08-02 | XR_ITS ---
EXAMINATION: XR CHEST CLINICAL INFORMATION: Chest and epigastric pain. COMPARISON: 05/15/2022 chest radiograph. TECHNIQUE: Frontal view of the chest was obtained. FINDINGS: The lungs are clear. The heart and mediastinal structures are unremarkable. Old left humeral surgical neck fracture without significant change. XR/XR chest 1V IMPRESSION: July
--- NOTE | ~2022-08-02 | US_ITS ---
EXAMINATION: US ABDOMEN LIMITED CLINICAL INFORMATION: Epigastric pain. COMPARISON: None TECHNIQUE: Real-time imaging of the right upper quadrant abdominal viscera. FINDINGS: PANCREAS: Not visualized obscured by bowel gas LIVER: Normal. The liver is normal in size. The liver contour is normal. Parenchymal echogenicity is normal. No focal hepatic lesion. There is no intrahepatic biliary duct dilatation seen. Exam limited, uncooperative patient combative. US/US abdomen limited IMPRESSION: Extremely limited exam uncooperative patient Images of the liver submitted mostly unremarkable.
[2022-08-02 14:24] VITALS: BP 100/63; PULSE 86; RESP 20; TEMP 36.9; O2SAT 97; BMI 29.2
--- NOTE | 2022-08-02 16:13 | ED_ITS ---
HPI - Chest Pain General Chief Complaint: Chest Pain Stated Complaint: Discomfort per EMS Source: patient, EMS, RN notes reviewed and old records reviewed Mode of arrival: EMS Limitations: other (History of dementia) History of Present Illness HPI narrative: 86-year-old female with a past medical history of Dementia, hypothyroidism, seizure disorder, hypertension, [place] on 05/15/2022 who is currently residing at [facility] who is presenting to the ER via EMS after she had a few seconds of epigastric abdominal pain that radiated up to her chest and 1 episode of vomiting that occurred around noon prior to arrival. Patient on arrival is very combative and reports that no one is going to take blood from her and that she feels completely fine and has no symptoms at this time and that her doctor told her ?if you feel fine you can go home?. She denies any symptoms at this time. MD complaint: chest pain Pertinent past history: prior [place] Onset (ago): hour(s) (Prior to arrive) Timing of current episode: episodic Prior episodes: Yes Onset: other (While eating 1) Pain location: epigastric Pain radiation: other (Chest) Severity: mild Quality: aching Relieving factors: nothing Exacerbating factors: nothing Associated symptoms: nausea and vomiting Treatment prior to arrival: none Risk Factors Coronary artery disease risk factors: hyperlipidemia and hypertension (And prior [place]) Thoracic aortic dissection risk factors: longstanding hypertension Related Data On Oral Contraceptives: No Home Medications Medication Instructions Recorded Confirmed divalproex 125 mg tablet,delayed 125 mg PO BID 01/21/22 05/15/22 release (Depakote) levothyroxine 75 mcg tablet 1 tab PO DAILY 01/21/22 05/15/22 lidocaine 5 % topical patch 1 patch topical DAILY 01/21/22 05/15/22 melatonin 5 mg tablet 5 mg PO BEDTIME 01/21/22 05/15/22 multivitamin 1 tab PO DAILY 01/21/22 05/15/22 omeprazole 20 mg capsule,delayed 20 mg PO DAILY 01/21/22 05/15/22 release polyethylene glycol 3350 17 17 g PO DAILY 01/21/22 05/15/22 gram/dose oral powder (Miralax) quetiapine 25 mg tablet 12.5 mg PO DAILY@1400 01/21/22 05/15/22 simvastatin 20 mg tablet 20 mg PO BEDTIME 01/21/22 05/15/22 tamsulosin 0.4 mg capsule 0.4 mg PO BEDTIME 01/21/22 05/15/22 acetaminophen 325 mg tablet 650 mg PO BID 05/15/22 05/15/22 acetaminophen 325 mg tablet 650 mg PO Q6H PRN ELEVATED 05/15/22 05/15/22 TEMP/PAIN escitalopram oxalate 5 mg tablet 7.5 mg PO DAILY 05/15/22 05/15/22 losartan 25 mg tablet 25 mg PO DAILY 05/15/22 05/15/22 Allergies Allergy/AdvReac Type Severity Reaction Status Date / Time codeine Allergy Unknown Unknown Verified 01/21/22 11:43 Review of Systems Review of Systems: Constitutional : No Weight loss, No Fever, No Chills, No Night Sweats, No Fatigue, No Malaise ENT/Mouth : No Hearing loss, No Ear Pain, No Nasal Congestion, No Sinus Pain, No Hoarseness, No sore throat, No Rhinorrhea, No Swallowing Difficulty Eyes: No Eye Pain, No Swelling, No Redness, No Foreign Body, No Discharge, No Vision Changes Cardiovascular : + Chest Pain, No SOB, No Dyspnea on Exertion, No Orthopnea, No Edema, No Palpitations Respiratory : No Cough, No Sputum, No Wheezing, No Smoke Exposure, No Dyspnea Gastrointestinal : + Nausea, + Vomiting, No Diarrhea, No Constipation, No abdominal Pain, No Hematochezia, No Melena Genitourinary : no irregular bleeding, No Dysuria, No Urinary Frequency, No Hematuria, No Urinary Incontinence, No Urgency, No Flank Pain, No Urinary Flow Changes, No Hesitancy Musculoskeletal : No joint pain, No Myalgias, No Joint Swelling Skin : No Skin Lesions, No rash Neuro : No Weakness, No Numbness, No Paresthesias, No Loss of Consciousness, No Dizziness, No Headache Psych : No Anxiety/Panic, No Depression, No SI/HI/AH/VH, No Social Issues, Heme/Lymph: No Bruising, No Bleeding,No Lymphadenopathy Endocrine : No Polyuria, No Polydipsia, No Temperature Intolerance Yes all other systems are reviewed and are negative [facility] Past Medical History Attestation statement: The following information was validated with the patient. Source: old records reviewed and nursing notes reviewed Medical History Dementia Hypertension Hypothyroidism Social History Social History Household Members: Other Household Members Other:: [facility] Housing: Custodial Unable to assess alcohol history related to: Refusing to respond Patient Tobacco Use Status: Never used Tobacco Smoked in Last 30 Days: No Advance Directives: Yes Advance Directives on File: Yes Advance Directives Date on File: 05/15/22 service: No Current occupational status: retired Physical Exam Vital Signs: Vital Signs: Last Vital Signs Temp 98.4 F 08/02/22 14:24 Pulse 86 08/02/22 14:24 Resp 20 08/02/22 14:24 Pulse Ox 97 08/02/22 14:24 O2 Del Method 08/02/22 14:24 BMI result Body Mass Index 29.2 Vital signs reviewed. Blood pressure normal. Pulse normal. Respiration normal. Oxygen normal. Temperature normal. Appearance: Alert. Oriented X3 to self, place and date and president. No acute distress. Head: Normal external exam. Normocephalic. Atraumatic. Eyes: PERRLA. EOMI. Conjunctiva and sclera normal. Eyelids normal. ENT: Pharynx normal. Uvula midline. Moist mucous membranes. No lesions/ulcerations or masses noted on the tongue. Normal voice. No trismus noted. No drooling noted. No muffled voice noted. Neck: Normal inspection. Neck supple. FROM. No adenopathy. Thyroid Normal. No tracheal deviation noted. No crepitus is noted. No meningeal signs. No neck mass noted. No signs of trauma noted. CVS: Normal heart rate and rhythm. Heart sound normal. Pulses normal throughout. No murmurs/rales/gallops. Respiratory: No respiratory distress. Painless inspiration. Breath sounds normal. No wheezes/rales/rhonchi noted. Chest nontender. No crepitus is noted. No accessory muscle usage noted or decreased air movement noted. No signs of trauma. Abdomen: Soft and nontender. Nondistended. No guarding. No rigidity. Bowel sounds normal in all 4 quadrants. No distention noted. No organomegaly noted. No visible injury noted. No rebound tenderness. Negative Rovsing sign. Negative obturator's sign. Negative psoas sign. Negative Lamar sign. Back: Full range of motion noted. Nontender. No signs of trauma. Patient neuro intact bilaterally and distally on all 4 extremities. Patient's reflexes intact bilaterally and distally on all 4 extremities. No rashes /lesion/induration/fluctuance or signs of infection noted. Skin: Skin warm and dry. Normal skin color. Normal skin turgor. No rashes/lesions/lacerations noted. Extremities: No lower extremity edema. No calf tenderness is noted. Extremities exhibit normal range of motion and nontender. Neuro: Oriented X 3. No motor deficit. No sensory deficit. No focal neuro deficits noted. CN's II-XII intact bilaterally? Vascular: + radial pulses Normal cap refill. No cyanosis noted to upper extremity nails Course Course Course Narrative: 86-year-old female with a past medical history of Dementia, hypothyroidism, seizure disorder, hypertension, [place] on 05/15/2022 who is currently residing at [facility] who is presenting to the ER via EMS after she had a few seconds of epigastric abdominal pain that radiated up to her chest and 1 episode of vomiting that occurred around noon prior to arrival. Patient on arrival is very combative and reports that no one is going to take blood from her and that she feels completely fine and has no symptoms at this time and that her doctor told her ?if you feel fine you can go home?. She denies any symptoms at this time. On exam patient is alert oriented to place, time, self and president. She reports that she is not have any symptoms at this time she feels completely fine she does not wanting have any labs or imaging they did have trouble trying to ultrasound her and obtain an x-ray she did try to hit the tech. Reports that she is alert and she can make her own medical decisions and she feels completely fine therefore she would like to go back to the [facility]. Due to patient being alert and able to make her own medical decisions patient will be sent back to the [facility] without any blood work due to she is refusing all labs and any additional imaging. Instructed patient that she can possibly having an [place] and she reports she understands this and still wants to go back to [facility]. Medical Decision Making Independent Interpretation I performed an independent interpretation of an: EKG (EKG normal sinus rhythm with rare ventricular rate of 86 with left axis deviation no acute ischemic c hange are noted.), Plain X-Ray (Reviewed the chest x-ray report and agree with radiologist's report) and Ultrasound (I reviewed the ultrasound results and agree with radiologist's report) Interpretation: FINDINGS: PANCREAS: Not visualized obscured by bowel gas LIVER: Normal. The liver is normal in size. The liver contour is normal. Parenchymal echogenicity is normal. No focal hepatic lesion. There is no intrahepatic biliary duct dilatation seen. Exam limited, uncooperative patient combative. US/US abdomen limited IMPRESSION: Extremely limited exam uncooperative patient ? Images of the liver submitted mostly unremarkable. FINDINGS: The lungs are clear. The heart and mediastinal structures are unremarkable. Old left humeral surgical neck fracture without significant change. XR/XR chest 1V IMPRESSION: July abnormal ADDENDUMIMPRESSION:No acute cardiopulmonary process. Radiology Impression Discussion of test interpretation with radiology: I have reviewed the radiologist's reading. Independent Historian Clinical information obtained from an independent historian. History obtained from or confirmed by: Other (From the [facility] records and her prior visits here in the ER all labs and imaging were reviewed along with report) External Record Review External record reviewed: Inpatient record, Office record, Outpatient record, Prior outpatient labs, Prior outpatient radiology, Primary care record and Outside ED record Chronic Conditions Patient?s care impacted by: Hypertension and Other ([place]) Discharge Plan Discharge Clinical Impression: Chest pain, Vomiting, Left against medical advice Patient Disposition: Home, Self-Care Instructions: Chest Pain (DC), Against Medical Advice (ED) Prescriptions: No Action multivitamin Tablet 1 tab PO DAILY quetiapine 25 mg Tablet 12.5 mg PO DAILY@1400 levothyroxine 75 mcg tablet 1 tab PO DAILY tamsulosin 0.4 mg Capsule 0.4 mg PO BEDTIME simvastatin 20 mg Tablet 20 mg PO BEDTIME lidocaine 5 % Adhesive Patch,Medicated 1 patch TOPICAL DAILY Rx Instructions: leave on most painful area for up to 12 hrs divalproex [Depakote] 125 mg Tablet,Delayed Release (Dr/Ec) 125 mg PO BID omeprazole 20 mg Capsule,Delayed Release(Dr/Ec) 20 mg PO DAILY polyethylene glycol 3350 [Miralax] 17 gram/dose Powder 17 g PO DAILY melatonin 5 mg Tablet 5 mg PO BEDTIME losartan 25 mg Tablet 25 mg PO DAILY acetaminophen 325 mg Tablet 650 mg PO BID escitalopram oxalate 5 mg Tablet 7.5 mg PO DAILY acetaminophen 325 mg Tablet 650 mg PO Q6H PRN (Reason: ELEVATED TEMP/PAIN) Referrals: MINA JUAREZ [Primary Care Provider] - 1 day
--- NOTE | 2022-08-02 16:13 | PC.NURSE ---
patient coming from locked dementia unit at [facility], alert & oriented x3. pt refusing blood work along with xray. pt repeatedly screaming from room that she wants to go home, now . pt doesn't appear to be in any obvious distress and denies chest pain. rr even/unlabored.
== END 2022-08-02 18:53 | disposition home or self-care (01) ==
PROVIDERS: Emergency Provider Emergency Medicine; PCP Emergency Medicine
DX: R07.89 Other chest pain (principal); E78.5 Hyperlipidemia, unspecified; I10 Essential (primary) hypertension; R11.10 Vomiting, unspecified; Z79.899 Other long term (current) drug therapy
CPT/HCPCS: 71045; 76705; 93005; 99284